=== PATIENT | female | born 1955 | race Caucasian/White ===

== ENCOUNTER → 2021-05-13 09:53 | Outpatient (CLI) | payer MEDICARE, SELFPAY ==
[2021-05-13 12:22] LABS: Color, Urine Yellow (Yellow); Glucose, Dipstick 1000 mg/dl (Normal); Ketone-Dipstick Negative (Negative); Leukocyte Esterase-Dipstick 25 /ul (Negative); Nitrite-Dipstick Negative (Negative); Occult Blood-Urine Negative /ul (Negative); Protein-Dipstick 15 mg/dl (Negative); Urine Bilirubin Dipstick Negative (Negative); Urine Clarity Clear (Clear); Urine Urobilinogen Normal (Normal)
[2021-05-13 12:24] LABS: Absolute Lymphocyte Count 1.48 X10^3/uL (0.83-4.51); Absolute Neutrophil Count 6.4 X10^3/uL (2.0-7.7); Basophil# 0.08 X10^3/uL; Basophil% 0.8 % (0-1); Eosinophil# 0.87 X10^3/uL; Eosinophils% 8.8 % (0-5); Hematocrit 42.2 % (37-47); Hemoglobin 13.6 g/dL (12.0-15.0); Lymphocyte # 1.48 X10^3/ul (0.83-4.51); Lymphocyte % 14.9 % (19-41); Mean Corp Hgb Conc 32.2 g/dL (32-36); Mean Corpuscular Hgb 29.7 pg (27.0-32.0); Mean Corpuscular Volume 92.1 fL (81-99); Mean Platelet Vol. 9.9 fl (6.2-12.0); Monocyte% 10.1 % (0-10); NRBC Flagged by Analyzer 0 % (0-5); Neutrophil # 6.44 X10^3/uL (2.7-7.7); Platelet Count 332 K/mm3 (150-450); RBC Distribution Width SD 47.6 fl (35.1-43.9); Red Blood Count 4.58 M/mm3 (4.2-5.4); White Blood Count 9.9 K/mm3 (4.4-11.0)
[2021-05-13 12:33] LABS: Vitamin D,25 Hydroxy 42.7 ng/mL
[2021-05-13 12:39] LABS: Hemoglobin A1c 6.9 % (3.8-5.6)
[2021-05-13 12:42] LABS: BNP,B-Type NATRIURETIC PEPTIDE 15.6 pg/mL (0-100)
[2021-05-13 12:49] LABS: ALB/GLOB Ratio 0.9 RATIO (0.9-2.4); AST(SGOT) 16 U/L (15-37); Alanine Aminotransfer ALT/SGPT 28 U/L (13-56); Albumin, Serum 3.5 g/dL (3.2-5.0); Alkaline Phosphatase 110 U/L (45-117); Anion Gap 7 (5-15); BUN 29 mg/dL (7-18); BUN/Creat Ratio 19.5 RATIO (10-20); Calcium,Total 10.1 mg/dL (8.5-10.1); Chloride 104 mmol/L (98-107); Cholesterol 116 mg/dL (200); Creatinine, Serum 1.49 mg/dL (0.55-1.02); EST Glomerular Filtration Rate 37 mL/min (>60); Est Glom Filt Rate - Afr Amer 45 mL/min (>60); Free T3 2.4 pg/mL (2.18-3.98); Globulin 3.9 g/dL (2.2-4.2); Glucose 113 mg/dL (74-106); High Density Lipoprotein 46 mg/dL; Magnesium 2.9 mg/dL (1.6-2.6); Potassium 4.2 mmol/L (3.5-5.1); Protein, Total 7.4 g/dL (6.4-8.2); Sodium Level 139 mmol/L (136-145); T4 Free Direct 1.12 ng/dL (0.76-1.46); Thyroid Stim Hormone (TSH) 4.84 uIU/mL (0.358-3.74); Triglycerides 138 mg/dL; Very Low Density Lipoprotein 28 mg/dL (5-40)
== END ==
PROVIDERS: PCP Internal Medicine; Visit Provider Internal Medicine
DX: I11.0 Hypertensive heart disease with heart failure (principal); Z90.10 Acquired absence of unspecified breast and nipple; E89.0 Postprocedural hypothyroidism; N19 Unspecified kidney failure; E11.42 Type 2 diabetes mellitus with diabetic polyneuropathy; E07.9 Disorder of thyroid, unspecified; E21.5 Disorder of parathyroid gland, unspecified; M81.0 Age-related osteoporosis without current pathological fracture; M19.90 Unspecified osteoarthritis, unspecified site; E78.1 Pure hyperglyceridemia; K21.9 Gastro-esophageal reflux disease without esophagitis; Z09 Encounter for follow-up examination after completed treatment for conditions other than malignant neoplasm; Z86.010 Personal history of colon polyps; J44.9 Chronic obstructive pulmonary disease, unspecified
CPT/HCPCS: 36415; 80053; 80061; 81002; 82306; 83036; 83735; 83880; 84439; 84443; 84481; 85025

== ENCOUNTER 2021-06-01 08:39 | Outpatient (CLI) | payer MEDICARE, SELFPAY ==
[2021-06-01 12:50] LABS: Anion Gap 7 (5-15); BUN 27 mg/dL (7-18); Calcium,Total 9.7 mg/dL (8.5-10.1); Chloride 104 mmol/L (98-107); EST Glomerular Filtration Rate 37 mL/min (>60); Est Glom Filt Rate - Afr Amer 45 mL/min (>60); Glucose 199 mg/dL (74-106); Potassium 4.4 mmol/L (3.5-5.1); Sodium Level 139 mmol/L (136-145)
== END 2021-06-01 23:59 | disposition short-term general hospital (02) ==
LOC: BIMLAB 08:40
PROVIDERS: PCP Internal Medicine; Referring Provider Internal Medicine; Visit Provider Internal Medicine
DX: N19 Unspecified kidney failure (principal)
CPT/HCPCS: 36415; 80048

== ENCOUNTER 2021-06-08 08:59 | Outpatient (CLI) | payer MEDICARE, SELFPAY ==
[2021-06-08 12:25] LABS: Anion Gap 9 (5-15); BUN 32 mg/dL (7-18); BUN/Creat Ratio 21.1 RATIO (10-20); Calcium,Total 9.5 mg/dL (8.5-10.1); Chloride 100 mmol/L (98-107); Creatinine, Serum 1.52 mg/dL (0.55-1.02); EST Glomerular Filtration Rate 37 mL/min (>60); Est Glom Filt Rate - Afr Amer 44 mL/min (>60); Glucose 200 mg/dL (74-106); Magnesium 2.8 mg/dL (1.6-2.6); Potassium 4.3 mmol/L (3.5-5.1); Sodium Level 136 mmol/L (136-145)
== END 2021-06-08 23:59 | disposition short-term general hospital (02) ==
LOC: BIMLAB 09:00
PROVIDERS: PCP Internal Medicine; Referring Provider Internal Medicine; Visit Provider Internal Medicine
DX: N39.0 Urinary tract infection, site not specified (principal); I11.0 Hypertensive heart disease with heart failure; I50.9 Heart failure, unspecified; N19 Unspecified kidney failure
CPT/HCPCS: 36415; 80048; 83735

== ENCOUNTER 2021-06-24 12:01 | Outpatient (CLI) | payer MEDICARE, SELFPAY ==
--- NOTE | 2021-06-24 16:06 | ST.MBS ---
Modified Barium Swallow - Patient Information Study Date: 06/24/21 Study Time: 13:00 Direct Billable Minutes: 110 Total Minutes procedure & reportin Diagnosis: Dysphagia, unspecified (R13.10) Referring Physician: Prieto Garcia Reason for Referral: Objectively assess swallow function, risk for aspiration, and to determine recommendations for least restrictive diet texture and compensatory strategies to improve safety of swallow Medical History: The patient is a 66 year old female with PMH below who was referred for MBS study due to concerns for difficulty swallowing foods and drinks. She feels that pills get stuck in her throat. She is currently eating soft solids and unthickened liquids. The patient reports a history of esophageal dilation (4X, most recently 01/2021), MBS study ([place], [place], 1.5 years ago), and history of modified diet (soft solids and thickened liquids). The patient had speech therapy for 2 months after MBS study but did not feel the exercises (Earline and lingual resistance exercises) helped. PMH (Per recent cardiology visit): Arthritis, Asthma, Bleeding disorder, Carpal tunnel syndrome, Cataract, Chronic heart failure with preserved ejection fraction (HFpEF), COPD (chronic obstructive pulmonary disease), Dysphagia, Dysuria, Essential hypertension, GERD (gastroesophageal reflux disease), Glaucoma, Headache, migraine, High triglycerides, History of breast cancer, IBS (irritable bowel syndrome), Kidney failure, Lupus, Neuropathy, Osteoarthritis, Osteoporosis, Parathyroid disorder, Personality disorder, PTSD (post-traumatic stress disorder), Seasonal allergies, Stroke, Thyroid disease, Type 2 diabetes mellitus, Venous hypertension of both lower extremities Surgical history: H/O cervical spine surgery, H/O foot surgery, H/O hand surgery, H/O shoulder surgery, H/O thyroidectomy, History of cholecystectomy, History of hysterectomy, History of left heart catheterization (10/08/09), History of mastectomy Current Diet Ordered: Soft solids / Thin liquids Dentition: WNL Mental Status: WNL Respiratory Status: Oxygenating on Room Air - Penetration-Aspiration Scale Penetration-Aspiration Scale: OBJECTIVE ASSESSMENT OF SWALLOW FUNCTION (QUANTITATIVE ? PER TRIAL): PENETRATION / ASPIRATION SCALE (VARGAS): 1 = does not enter airway 2 = enters airway/above vocal folds/ejected 3 = enters airway/above vocal folds/not ejected 4 = enters airway/contacts vocal folds/ejected 5 = enters airway/contacts vocal folds/not ejected 6 = enters airway/below vocal folds/ejected 7 = enters airway/below vocal folds/not ejected despite effort 8 = enters airway/below vocal folds/no effort - Penetration-Aspiration Scale Score Thin Liquid via teaspoon Result: 3= enters airways/above vocal folds/not ejected Thin Liquid via teaspoon Trial 2 Result: 2= enter airway/above vocal folds/ejected Thin Liquid via large single sip from cup Result: 2= enter airway/above vocal folds/ejected Thin Liquid via sequential sips from cup Result: 3= enters airways/above vocal folds/not ejected Thin Liquid via small single sip from cup Result: 3= enters airways/above vocal folds/not ejected Fulford Thick Liquid via small single sip from cup Result: 1= does not enter airway [place]ford Thick Liquid via small single sip from cup Trial 2 Result: 2= enter airway/above vocal folds/ejected Fulford Thick Liquid via small single sip from cup Trial 3 Result: 2= enter airway/above vocal folds/ejected Honey Thick Liquid via small single sip from cup Result: 2= enter airway/above vocal folds/ejected Pudding with esophageal screen Result: 1= does not enter airway 1/4 Dulce Lomax Comment: Did not score as pt left bolus mostly unchewed. CERTIFIED LEGAL SECRETARY SPECIALIST had pt expectorate bolus. Barium Tablet via teaspoon of Pudding Result: 1= does not enter airway Thin Liquid via single sip from straw Result: 4= enters airway/contacts vocal folds/ejected Thin Liquid via small single sip from cup Trial 3 Result: 3= enters airways/above vocal folds/not ejected Fulford Thick Liquid via small single sip from cup Effortful swallow Result: 2= enter airway/above vocal folds/ejected Fulford Thick Liquid via small single sip from cup Trial 4 Result: 1= does not enter airway Fulford Thick Liquid via small single sip from cup Trial 5 Result: 1= does not enter airway - Oral Phase Labial Seal: No Labial Escape Tongue Control During Bolus Hold: Posterior escape of less than half of bolus Bolus Preparation/Mastication: Minimal chewing/mashing with majority of bolus unchewed Bolus Transport/Lingual Motion: Delayed initiation of tongue motion Oral Residue: Majority of bolus remaining - 1/4 Dulce Doone Cookie Trial left unchewed and expectorated. - Pharyngeal Phase Initiation of Pharyngeal Swallow: Bolus head in pyriforms Soft Palate Elevation: Trace column of contrast/air between soft palate and pharyngeal wall Laryngeal Elevation: Partial superior movement thyroid cart/partial apprx aryt-epig petiole Anterior Hyoid Excursion: Partial anterior movement Epiglottic Movement: Partial inversion Laryngeal Vestibule Closure at Height of Swallow: Incomplete; narrow column of air/contrast in laryngeal vestibule Pharyngeal Stripping Wave: Present - complete Pharyngoesophageal Segment Opening: Parital distension and partial duration; parital obstruction of flow Tongue Base Retraction: Trace column of contrast between tongue base & post. pharyngeal wall Pharyngeal Residue: Trace residue within or on pharyngeal structures - Esophageal Phase Esophageal Clearance: Esophageal retention w/ retrograde flow below pharyngoesophageal seg. - Treatment Strategies Effects of treatment strategies attemped:: Effortful swallow = Little to no impact on decreasing presence of laryngeal penetration. Decreased bolus rate = Effective. Decreased bolus size = Effective. Medication in puree texture = Effective in achieving oral clearance. - Diagnosis/Impression Diagnosis: Mild-moderate oropharyngeal phase dysphagia (R13.12) Impression: The oral phase is marked by severe impairment in mastication. The patient was unable to mash 1/4 Dulce Doone cookie coated in pudding. She has mild deficits in bolus control resulting in loss of bolus to floor of mouth, as well as less than half of bolus to the pyriforms resulting in suboptimal bolus placement upon swallow onset. The pharyngeal phase of the swallow is marked by mild impairments in airway closure due to decreased anterior hyoid excursion and laryngeal elevation. The patient had consistent laryngeal penetration of various consistencies above the vocal folds. This laryngeal penetration did not always fully eject (SEE PAS scores above). With boluses of thicker viscosities (thickened liquids and pudding), the patient had decreased amount/depth of laryngeal penetration. Decreased bolus size and decreased bolus rate also decreased amount of laryngeal penetration. With sips of thin liquids via straw, the patient had penetration to the vocal folds with full ejection due to cough reflex. The patient intermittently coughed throughout the evaluation - both in response to laryngeal penetration and also when no laryngeal penetration was present. No aspiration was observed during the evaluation; however, pt is at increased risk to aspirate thin liquids and large boluses during the swallow. - Recommendations Diet: Mechanical Soft Textures - Minced and moist textures (IDDSI Level 5), Fulford-thick Liquids Compensatory Strategies: Small Bites, Small Sips, No Straws, Slow Rate - Sips and bites one at a time, Sitting upright, Remain sitting upright for 30 minutes after PO intake Recommend Repeat Modified Barium Swallow: Yes - Will recommend repeat MBS study 6-8 weeks after implementation of oropharyngeal strengthening. Need for Skilled Speech Therapy Services: Yes Comment: Will recommend the patient for outpatient dysphagia therapy to address deficits in oropharyngeal swallow function. Would consider the patient for oropharyngeal strengthening to improve lingual control, laryngeal elevation, swallow onset, and hyoid excursion (Effortful swallows, Effortful breath hold and swallow, Amish, lingual coordination). The patient would benefit from thorough education regarding diet recommendations and recommended compensatory strategies. Recommended Referrals: Dental Evaluation - Consider consult to obtain dentures to improve mastication abilities. Education Completed: 1. Described result of evaluation., 7. Pt requires further education on strategies & risks. - Status Active ST Patient: Active - Contact Information [facility] Speech Therapy:: Carline Powers M.A. [facility]-CERTIFIED LEGAL SECRETARY SPECIALIST Speech-Language Pathologist [facility] [address] [place] [address] [email or web address] [phone] 06/24/21 16:30
== END 2021-06-24 23:59 | disposition short-term general hospital (02) ==
LOC: RAD 12:02
PROVIDERS: PCP Internal Medicine; Referring Provider Surgery; Visit Provider Surgery
DX: E11.22 Type 2 diabetes mellitus with diabetic chronic kidney disease (principal); N18.9 Chronic kidney disease, unspecified
CPT/HCPCS: 74230; 92611

== ENCOUNTER 2021-06-25 18:38 | Emergency (ER) | payer MEDICARE, SELFPAY ==
[2021-06-25 18:38] VITALS: BP 114/85; PULSE 89; RESP 14; TEMP 37.1; O2SAT 97; BMI 39.2
[2021-06-25 19:15] VITALS: BP 126/72; PULSE 84; RESP 21; O2SAT 94
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
[2021-06-25 20:01] VITALS: BP 118/67; PULSE 78; RESP 16; O2SAT 97
== END 2021-06-25 20:27 | disposition home or self-care (01) ==
PROVIDERS: Emergency Provider Student in an Organized Health Care Education/Training Program; PCP Internal Medicine; Visit Provider Student in an Organized Health Care Education/Training Program
DX: F41.0 Panic disorder [episodic paroxysmal anxiety] (principal); J44.9 Chronic obstructive pulmonary disease, unspecified; I11.0 Hypertensive heart disease with heart failure; I50.32 Chronic diastolic (congestive) heart failure; K21.9 Gastro-esophageal reflux disease without esophagitis; Z79.82 Long term (current) use of aspirin; Z79.899 Other long term (current) drug therapy
CPT/HCPCS: 99284

== ENCOUNTER 2021-07-09 08:36 | Outpatient (RCR) | payer MEDICARE, SELFPAY ==
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
--- NOTE | 2021-07-27 10:26 | HP.PT.NRP ---
JULIO GILLESPIE was seen in my office for initial evaluation on 07/09/21. The following Plan of Care was established for this patient: Initial Frequency: 2-3x /Week Initial Duration: 4-6 Weeks Patient/Client Instruction: Educate patient on: Condition, Plan of Care, Risk Factors For the Purpose of:: To improve self management Therapeutic Exercise to Include: Strength training, Body mechanics, Postural training, Flexibilty training, Neuromotor development, In an aquatic setting, Dynamic Lumbar Stabilization For the Purpose of:: To decrease pain, To increase ROM, To improve muscle performance and motor function, To increase tolerance to activity/condition/position, To improve ability of physical actions for home/community/work/leisure This patient was last seen in our office 07/09/21. Pertinent comments regarding their Physical therapy will appear below: PATIENT ATTENDED THE PT EVTALISHA THEN I RECEIVED A NOTE (07/27/21) STATING: PATIENT CALLED AND CANCELLED ALL APPTS. SAYS SHE'S BEEN WALKING A LOT EVERYDAY AND FEELS AMAZING AND HAS LOST 7 LBS. WANTED ME TO TELL YOU HER GOOD NEWS! At this point I will be discontinuing this patient from physical therapy. I would be happy to see this patient again in the future if found appropriate by the physician. Thank you! Lily Penny, PT, Cert MDT Balance/Gait/Functional tests - Balance/Special Test Scores Oswestry Low Back Score: 17
== END 2021-07-09 19:00 | disposition home or self-care (01) ==
LOC: PT 08:36
PROVIDERS: PCP Internal Medicine; Referring Provider Anesthesiology Pain Medicine; Visit Provider Anesthesiology Pain Medicine
DX: M54.9 Dorsalgia, unspecified (principal); M79.606 Pain in leg, unspecified
CPT/HCPCS: 97112; 97162

== ENCOUNTER 2021-07-14 08:18 | Outpatient (CLI) | payer MEDICARE, SELFPAY ==
--- NOTE | 2021-07-14 08:21 | US_ITS ---
STUDY: THYROID ULTRASOUND REASON FOR EXAM: Female, 66 years old. Neck fullness, dysphagia TECHNIQUE: Ultrasound evaluation of the thyroid was performed with real-time and static davison-scale imaging. COMPARISON: None. FINDINGS: There has been a previous thyroidectomy. In the right thyroid bed there is a 1.3 x 0.8 x 0.7 cm area of soft tissue density which is consistent with thyroid tissue on ultrasound. A thyroid uptake study could be performed to determine if this represents thyroid tissue. At the site of a palpable abnormality adjacent to the right ear there is a lymph node measuring 1.8 x 1.3 x 0.8 cm. US/Thyroid IMPRESSION: Possible thyroidal tissue noted in the right thyroid bed measuring 1.3 x 0.8 x 0.7 cm. Consider further evaluation with thyroid uptake study Palpable abnormality near the right ear is subcentimeter in short axis dimension lymph node, likely physiologic Electronically Signed: Edgar Marin MD at 17:51 EST ,
== END 2021-07-14 23:59 | disposition home or self-care (01) ==
LOC: US 08:18
PROVIDERS: PCP Internal Medicine; Referring Provider Internal Medicine Endocrinology, Diabetes & Metabolism; Visit Provider Internal Medicine Endocrinology, Diabetes & Metabolism
DX: E04.9 Nontoxic goiter, unspecified (principal)
CPT/HCPCS: 76536

== ENCOUNTER 2021-07-15 12:11 | Outpatient (CLI) | payer MEDICARE, SELFPAY ==
[2021-07-15 15:28] LABS: Albumin, Serum 3.3 g/dL (3.2-5.0); BUN 15 mg/dL (7-18); BUN/Creat Ratio 13.6 RATIO (10-20); Calcium,Total 8.9 mg/dL (8.5-10.1); Chloride 104 mmol/L (98-107); EST Glomerular Filtration Rate 53 mL/min (>60); Est Glom Filt Rate - Afr Amer 64 mL/min (>60); Glucose 150 mg/dL (74-106); Phosphorus 2.8 mg/dL (2.5-4.9); Potassium 4.1 mmol/L (3.5-5.1); Sodium Level 138 mmol/L (136-145)
[2021-07-15 15:34] LABS: PTHIN 62.3 pg/mL (18.4-80.1)
[2021-07-15 15:40] LABS: T4 Free Direct 1.09 ng/dL (0.76-1.46); Thyroid Stim Hormone (TSH) 3.31 uIU/mL (0.358-3.74)
[2021-07-15 17:13] LABS: Vitamin D,25 Hydroxy 47.5 ng/mL
[2021-07-15 17:19] LABS: Microalbumin,Random Urine 16.6 mg/L (NO RANGE EST.); Microalbumin:Creatinine Ratio 10.9 mg/g CRE (<30 mg/g CRE)
== END 2021-07-15 23:59 | disposition home or self-care (01) ==
LOC: BIMLAB 12:12
PROVIDERS: Internal Medicine Endocrinology, Diabetes & Metabolism; PCP Internal Medicine; Referring Provider Internal Medicine Nephrology; Visit Provider Internal Medicine Nephrology
DX: E11.22 Type 2 diabetes mellitus with diabetic chronic kidney disease (principal); E21.5 Disorder of parathyroid gland, unspecified; N18.32 Chronic kidney disease, stage 3b; E55.9 Vitamin D deficiency, unspecified
CPT/HCPCS: 36415; 80069; 82043; 82306; 82570; 83970; 84439; 84443

== ENCOUNTER 2021-08-19 13:19 | Outpatient (CLI) | payer MEDICARE, SELFPAY ==
[2021-08-19 15:10] LABS: Absolute Neutrophil Count 6.5 X10^3/uL (2.0-7.7); Basophil# 0.05 X10^3/uL; Basophil% 0.5 % (0-1); Eosinophil# 0.59 X10^3/uL; Eosinophils% 6.2 % (0-5); Lymphocyte % 15.7 % (19-41); Mean Corp Hgb Conc 31.7 g/dL (32-36); Mean Corpuscular Hgb 29.5 pg (27.0-32.0); Monocyte# 0.84 X10^3/uL; Monocyte% 8.8 % (0-10); NRBC Flagged by Analyzer 0 % (0-5); Neutrophil # 6.54 X10^3/uL (2.7-7.7); Neutrophil % 68.5 % (47-70); Platelet Count 296 K/mm3 (150-450); RBC Distribution Width CV 13.3 % (11.6-14.6); RBC Distribution Width SD 45.6 fl (35.1-43.9); Red Blood Count 4.41 M/mm3 (4.2-5.4); White Blood Count 9.6 K/mm3 (4.4-11.0)
[2021-08-19 15:22] LABS: Vitamin D,25 Hydroxy 51.5 ng/mL
[2021-08-19 15:34] LABS: BNP,B-Type NATRIURETIC PEPTIDE 19.2 pg/mL (0-100)
[2021-08-19 15:36] LABS: ALB/GLOB Ratio 0.9 RATIO (0.9-2.4); AST(SGOT) 15 U/L (15-37); Alanine Aminotransfer ALT/SGPT 27 U/L (13-56); Albumin, Serum 3.4 g/dL (3.2-5.0); Alkaline Phosphatase 121 U/L (45-117); Anion Gap 7 (5-15); BUN 15 mg/dL (7-18); BUN/Creat Ratio 14.7 RATIO (10-20); Calcium,Total 8.7 mg/dL (8.5-10.1); Chloride 104 mmol/L (98-107); Cholesterol 104 mg/dL (200); Creatinine, Serum 1.02 mg/dL (0.55-1.02); EST Glomerular Filtration Rate 58 mL/min (>60); Est Glom Filt Rate - Afr Amer 70 mL/min (>60); Globulin 3.6 g/dL (2.2-4.2); Glucose 165 mg/dL (74-106); High Density Lipoprotein 43 mg/dL; Potassium 3.9 mmol/L (3.5-5.1); Sodium Level 139 mmol/L (136-145); T4 Free Direct 1.14 ng/dL (0.76-1.46); Thyroid Stim Hormone (TSH) 5.06 uIU/mL (0.358-3.74); Triglycerides 141 mg/dL; Very Low Density Lipoprotein 28 mg/dL (5-40)
[2021-08-19 15:39] LABS: Hemoglobin A1c 7.3 % (3.8-5.6)
== END 2021-08-19 23:59 | disposition home or self-care (01) ==
LOC: BIMLAB 13:20
PROVIDERS: PCP Internal Medicine; Referring Provider Internal Medicine; Visit Provider Internal Medicine
DX: I50.32 Chronic diastolic (congestive) heart failure (principal); J44.9 Chronic obstructive pulmonary disease, unspecified; I11.0 Hypertensive heart disease with heart failure; E11.65 Type 2 diabetes mellitus with hyperglycemia; E66.01 Morbid (severe) obesity due to excess calories; Z68.37 Body mass index [BMI] 37.0-37.9, adult; E04.9 Nontoxic goiter, unspecified; E03.9 Hypothyroidism, unspecified; E78.1 Pure hyperglyceridemia; E07.9 Disorder of thyroid, unspecified; K21.9 Gastro-esophageal reflux disease without esophagitis; M81.0 Age-related osteoporosis without current pathological fracture
CPT/HCPCS: 36415; 80053; 80061; 82306; 83036; 83880; 84439; 84443; 85025

== ENCOUNTER 2021-09-04 07:37 | Outpatient (CLI) | payer MEDICARE, SELFPAY ==
--- NOTE | 2021-09-04 07:39 | CT_ITS ---
STUDY: CT SOFT TISSUE NECK WITH CONTRAST REASON FOR EXAM: Female, 66 years old. RT NECK MASS. Lymphadenopathy in the posterior right cervical region. Difficulty swallowing. Patient has history of a left mastectomy and chemotherapy. RADIATION DOSAGE (If Supplied By Facility): CTDIvol = ( 19.55 ) mGy, DLP = ( 649.77 ) mGycm TECHNIQUE: The patient was scanned in a multi-detector CT scanner. High resolution transaxial imaging was performed following intravenous administration of IV 75mL Isovue-370. Sagittal and coronal images were reconstructed. Individualized dose optimization techniques were used for this CT. COMPARISON: None. FINDINGS: Normal bilateral parotid glands. Normal bilateral freelance director spaces. Normal bilateral parapharyngeal spaces. Normal bilateral carotid spaces. Normal bilateral sublingual and submandibular glands and spaces. Normal visualized nasopharynx. Normal retropharyngeal space. Normal perivertebral space. Normal visualized bilateral faucial tonsils. The visualized tongue, tongue base and oropharynx are normal. There are minimally enlarged lymph nodes of the neck, with preservation of normal wil architecture, consistent with a reactive lymph hyperplasia. There is no demonstrated solid or cystic mass lesion. There is no abnormal contrast enhancement. Normal epiglottis, bilateral vallecula and hypopharynx. The pre-epiglottic and paraglottic adipose spaces are normal. Normal visualized bilateral piriform sinuses, aryepiglottic folds, vocal cords, and arytenoid-cricoid articulations. Normal subglottic trachea. The thyroid gland is not visualized most likely secondary to prior resection. Normal visualized pulmonary apices. Normal visualized paranasal sinuses. There is multilevel degenerative changes of the cervical spine. Distention of the esophagus. Atherosclerotic plaque formation of the aortic arch. CT/Soft Tissue Neck WITH Contrast IMPRESSION: No mass lesion is seen. The patient is status post thyroid resection. Electronically Signed: Derek Cornejo MD at 14:09 EDT ,
== END 2021-09-04 23:59 | disposition home or self-care (01) ==
PROVIDERS: PCP Internal Medicine; Visit Provider Otolaryngology
DX: R22.1 Localized swelling, mass and lump, neck (principal)
CPT/HCPCS: 70491

== ENCOUNTER → 2021-09-30 | Outpatient (CLI) | payer MEDICARE, SELFPAY ==
--- NOTE | 2021-09-30 08:43 | ECHOCS_ITS ---
Reason For Study: PHTN Procedure This was a 2D Doppler, Color Flow transthoracic echocardiogram. The study was technically difficult. Contrast injection was performed. Exam performed in department. Left Ventricle Normal LV size. Left ventricular systolic function is normal. The estimated ejection fraction is 65 %. Stage 1 diastolic dysfunction. No regional wall motion abnormalities noted. Right Ventricle Normal RV size. Normal systolic function. Atria Normal left atrium. Normal right atrium. Mitral Valve Normal mitral valve. Tricuspid Valve Normal tricuspid valve. Mild tricuspid valve insufficiency. Pulmonary artery systolic pressure is 26 mmHg. Aortic Valve The aortic valve is not well visualized. Pulmonic Valve The pulmonic valve is not well visualized. Great Vessels Normal aortic root. The pulmonary artery is normal size. Normal inferior vena cava. Pericardium/Pleural No pericardial effusion. Medication 22 gauge I.V. with prn adaptor inserted into right arm. Diluted definity 3.5ml given slow IV push to enhance endocardial definition. MMode/2D Measurements & Calculations LVIDd: 4.4 cm IVSd: 1.0 cm LA dimension: 3.0 cm LVIDs: 3.1 cm LVPWd: 1.1 cm FS: 29.7 % LAV(MOD-sp4): 49.9 ml LA A4 area: 18.4 cm2 RA A4 area: 11.3 cm2 Time Measurements MV dec time: 0.28 sec Doppler Measurements & Calculations MV E max cm: 59.0 cm/sec Lat Peak E' Cm: 7.6 cm/sec Med Peak E' Cm: 9.2 cm/sec MV A max cm: 85.9 cm/sec E/E' lat: 7.7 E/E' med: 6.4 MV E/A: 0.69 MV V2 max: 93.8 cm/sec MV P1/2t max cm: 70.5 cm/sec Ao V2 max: 127.1 cm/sec MV max P.5 mmHg MV P1/2t: 75.3 msec Ao max P.5 mmHg MV V2 mean: 51.0 cm/sec MV dec slope: 274.5 cm/sec2 MV mean P.2 mmHg MV V2 VTI: 18.0 cm MVA(P1/2t): 2.9 cm2 LV V1 max: 116.7 cm/sec PA V2 max: 118.5 cm/sec TR max cm: 234.4 cm/sec LV V1 max P.4 mmHg TR max P.0 mmHg ECHO/Echo Complete W/ Contrast Interpretation Summary Normal LV size. Left ventricular systolic function is normal. The estimated ejection fraction is 65 %. Stage 1 diastolic dysfunction. Pulmonary artery systolic pressure is 26 mmHg. Contrast injection was performed. Ordering Physician: Colin Rosenberg Referring Physician: Heather Ziegler M.D. Performed By: Vipul Jaime RCS
== END | disposition home or self-care (01) ==
LOC: CVS 08:42
PROVIDERS: PCP Internal Medicine; Referring Provider Internal Medicine Critical Care Medicine; Visit Provider Internal Medicine Critical Care Medicine
DX: I50.32 Chronic diastolic (congestive) heart failure (principal); J44.9 Chronic obstructive pulmonary disease, unspecified
CPT/HCPCS: 93306; Q9957; A4216; C8929

== ENCOUNTER → 2021-11-11 | Outpatient (CLI) | payer MEDICARE, SELFPAY ==
[2021-11-11 08:35] LABS: BNP,B-Type NATRIURETIC PEPTIDE 48.8 pg/mL (0-100)
[2021-11-11 09:26] LABS: Anion Gap 7 (5-15); BUN 12 mg/dL (7-18); BUN/Creat Ratio 12.7 RATIO (10-20); Calcium,Total 8.7 mg/dL (8.5-10.1); Chloride 106 mmol/L (98-107); Creatinine, Serum 0.95 mg/dL (0.55-1.02); EST Glomerular Filtration Rate 63 mL/min (>60); Est Glom Filt Rate - Afr Amer 76 mL/min (>60); Glucose 118 mg/dL (74-106); Potassium 3.8 mmol/L (3.5-5.1); Sodium Level 140 mmol/L (136-145)
== END | disposition home or self-care (01) ==
LOC: LAB 07:35
PROVIDERS: PCP Internal Medicine; Referring Provider Nurse Practitioner Gerontology; Visit Provider Nurse Practitioner Gerontology
DX: R06.00 Dyspnea, unspecified (principal)
CPT/HCPCS: 36415; 80048; 83880

== ENCOUNTER → 2021-11-18 | Outpatient (CLI) | payer MEDICARE, SELFPAY ==
[2021-11-18 11:52] VITALS: PULSE 100; PULSE 106; PULSE 113; PULSE 116; PULSE 120; PULSE 125; PULSE 95; PULSE 98; O2SAT 93; O2SAT 94; O2SAT 95; O2SAT 96
--- NOTE | 2021-11-18 13:08 | WT_ITS ---
PSN 6 Minute Walk Test 6 Minute Walk Test 6 Minute Walk Test: 6 Minute Walk Test PSN:6-Minute Walk Test Start: 11/18/21 11:51 Freq: Status: Active Protocol: RESP.6MINW Document 11/18/21 11:52 [facility] (Rec: 11/18/21 11:56 [facility] [id number]) 6 Minute Walk Test Date Performed 11/18/21 Time Performed 11:30 Height 5 ft 9 in Weight: 114.305 kg Weight in Pounds 252.[address]: Colin Rosenberg Assistive device used: None Pre-test Oxygen Delivery Method Room Air Pulse Ox (%) 95 Pulse Rate (60-100 beats/min) 95 Dyspnea Elias Scale (0-10) 1 1st minute Oxygen Delivery Method Room Air Pulse Ox (%) 93 Pulse Rate (60-100 beats/min) 100 Dyspnea Elias Scale (0-10) 2 Number of Rests Taken 0 2nd minute Oxygen Delivery Method Room Air Pulse Ox (%) 93 Pulse Rate (60-100 beats/min) 106 H Dyspnea Elias Scale (0-10) 3 Number of Rests Taken 1 Reported Symptoms Increased Work of Breathing 3rd minute Oxygen Delivery Method Room Air Pulse Ox (%) 96 Pulse Rate (60-100 beats/min) 113 H Dyspnea Elias Scale (0-10) 4 Number of Rests Taken 1 Reported Symptoms Increased Work of Breathing 4th minute Oxygen Delivery Method Room Air Pulse Ox (%) 94 Pulse Rate (60-100 beats/min) 116 H Dyspnea Elias Scale (0-10) 4 Number of Rests Taken 0 Reported Symptoms Increased Work of Breathing 5th minute Oxygen Delivery Method Room Air Pulse Ox (%) 93 Pulse Rate (60-100 beats/min) 120 H Dyspnea Elias Scale (0-10) 4 Number of Rests Taken 1 Reported Symptoms Increased Work of Breathing 6th minute Oxygen Delivery Method Room Air Pulse Ox (%) 95 Pulse Rate (60-100 beats/min) 125 H Dyspnea Elias Scale (0-10) 4 Number of Rests Taken 0 Reported Symptoms Increased Work of Breathing Post-test Oxygen Delivery Method Room Air Pulse Ox (%) 96 Pulse Rate (60-100 beats/min) 98 Dyspnea Elias Scale (0-10) 1 Full Laps Walked 12 Partial Lap, Number of Tiles Walked 38 Total Distance Walked (ft) 746 Interpretation Interpretation: The patient was able to ambulate 746 feet over the course of 6 minutes on room air with no assistive device, but 3 breaks. The patient experienced no significant desaturation, but did have a peak heart rate of 125 bpm. These findings are consistent with a cardiovascular limitation exercise tolerance. Recommendations Recommendations: No supplemental oxygen is indicated at this time. Patient may benefit from a cardiovascular evaluation for shortness of breath on exertion.
== END | disposition home or self-care (01) ==
LOC: PSN 11:33
PROVIDERS: PCP Internal Medicine; Referring Provider Internal Medicine Critical Care Medicine; Visit Provider Internal Medicine Critical Care Medicine
DX: J44.9 Chronic obstructive pulmonary disease, unspecified (principal)
CPT/HCPCS: 94618

== ENCOUNTER → 2021-11-20 | Outpatient (CLI) | payer MEDICARE, SELFPAY ==
--- NOTE | 2021-11-21 05:30 | PFTCOMP_ITS ---
COMPLETE PULMONARY FUNCTION TEST INTERPRETATION Brief HPI: Patient is a 66-year-old female, currently under the care of myself, who presents to [facility] for complete pulmonary function tests secondary to diagnosis of COPD. Respiratory therapist reports good effort and reproducible results. Interpretation: Forced expiration spirometry shows no large airways obstructive ventilatory defect with an FEV1 of 77% predicted. There is no significant bronchodilator response by strict ATS criteria. Spirograms are of good quality and plateau normally. The respiratory flow volume loop shows a normal pattern. Lung volumes by body plethysmography show a mildly reduced total lung capacity at 4.92 L, 84% predicted. All other lung volumes are reduced symmetrically. Diffusion capacity by carbon monoxide is at the lower limit of normal at 70% predicted. The airway resistance is normal. No previous pulmonary function tests were available for review. Impression: Mild restrictive ventilatory defect with a symmetric reduction diffusion capacity
== END | disposition home or self-care (01) ==
LOC: PSN 12:25
PROVIDERS: PCP Internal Medicine; Referring Provider Internal Medicine Critical Care Medicine; Visit Provider Internal Medicine Critical Care Medicine
DX: J44.9 Chronic obstructive pulmonary disease, unspecified (principal)
CPT/HCPCS: 94060; 94726; 94729

== ENCOUNTER → 2021-12-17 | Day surgery (SDC) | payer MEDICARE, SELFPAY ==
[2021-12-17] MEDS: Lidocaine Jelly 2% 20 ML Syringe (URO-JET) 1 APPLIC (08:05)
[2021-12-17 08:26] VITALS: BP 145/65; PULSE 78; RESP 16; TEMP 36.3; O2SAT 97
== END | disposition home or self-care (01) ==
PROVIDERS: PCP Internal Medicine; Referring Provider Internal Medicine Gastroenterology; Visit Provider Internal Medicine Gastroenterology
PROC: F00ZJWZ Instrumental Swallowing and Oral Function Assessment using Swallowing Equipment (ICD-10-PCS; CPT 43235; principal; 2021-12-17 07:55)
DX: Z53.8 Procedure and treatment not carried out for other reasons (principal)
CPT/HCPCS: 91010

== ENCOUNTER 2021-12-23 12:15 | Outpatient (CLI) | payer MEDICARE, SELFPAY ==
--- NOTE | 2021-12-23 12:16 | EKG12_ITS ---
Test Reason : CP Blood Pressure : / mmHG Vent. Rate : 094 BPM Atrial Rate : 094 BPM P-R Int : 144 ms QRS Dur : 082 ms QT Int : 376 ms P-R-T Axes : 006 -34 045 degrees QTc Int : 470 ms Normal sinus rhythm Left axis deviation Abnormal ECG Confirmed by ML RIDLEY, KENNY ([id number]), graphic editor KENNEY ENRIQUE ([id number]) on 12/28/2021 11:02:12 AM Referred By: Heather Ziegler Confirmed By:ARASH BULL MD
== END 2021-12-23 23:59 | disposition home or self-care (01) ==
LOC: PSN 12:15
PROVIDERS: PCP Internal Medicine; Referring Provider Internal Medicine; Visit Provider Internal Medicine
DX: R07.89 Other chest pain (principal); M79.601 Pain in right arm; M79.602 Pain in left arm
CPT/HCPCS: 93005

== ENCOUNTER → 2021-12-26 | Outpatient (CLI) | payer MEDICARE, SELFPAY ==
[2021-12-26 08:37] LABS: T4 Free Direct 1.45 ng/dL (0.76-1.46); Thyroid Stim Hormone (TSH) 0.03 uIU/mL (0.358-3.74)
== END | disposition home or self-care (01) ==
LOC: LAB 07:34
PROVIDERS: PCP Internal Medicine; Referring Provider Internal Medicine Endocrinology, Diabetes & Metabolism; Visit Provider Internal Medicine Endocrinology, Diabetes & Metabolism
DX: E78.1 Pure hyperglyceridemia (principal); E11.9 Type 2 diabetes mellitus without complications; E03.9 Hypothyroidism, unspecified; I10 Essential (primary) hypertension
CPT/HCPCS: 36415; 84439; 84443

== ENCOUNTER 2021-12-30 08:20 | Day surgery (SDC) | payer MEDICARE, SELFPAY ==
[2021-12-30 08:46] VITALS: BP 123/56; PULSE 82; RESP 18; TEMP 36.2; O2SAT 95; BMI 37.0
--- NOTE | 2021-12-30 10:15 | EGD_PTH ---
PATIENT: JULIO GILLESPIE LOC: [facility] U#:[id number] AGE/SX: 66/F ROOM: RE12/30/[address]: Dr. Tristen Cabrera DO : 1955 BED: DIS: 12/30/2021 SPEC #: [id number] RECD: 12/30/21 13:55 STATUS: ISSAC LUDIVINA #: [id number] CLARA: 12/30/21 10:[address]: Tristen Cabrera DEPT: SURGICAL PATHOLOGY RECD BY: Sammi Castro ENTERED: 12/31/21 09:35 SP TYPE: EGD BIOPSY LUCIE DR: Dr. Heather Ziegler MD Tissues: A - Esophagus, NOS B - Esophagus, NOS Procedures: Special Stain Group II Surgery Specimen Level IV Alcian Blue/PAS (control) HEADER OPERATION: EGD with biopsies and (MAC) dilation PRE-OP DIAGNOSIS: Choking, GERD TISSUE SUBMITTED: A ? Distal esophagus biopsy, B ? Random esophagus biopsy MICROSCOPIC DIAGNOSIS A. Distal esophagus, biopsy: Fragments of gastroesophageal mucosa with chronic inflammation. Intestinal metaplasia (goblet cell metaplasia) not identified. See comment. B. Esophagus, random biopsy: Fragments of benign squamous epithelium. BRENDEN:donn 01/01/2022 COMMENT A. Alcian blue/PAS stain with matched control is used in the evaluation of the specimen. MICROSCOPIC DESCRIPTION Slides are reviewed. GROSS DESCRIPTION A - Received in fixative is one container labeled with the patient's name and designated distal esophagus biopsy. The specimen consists of two irregular fragments of light laura soft tissue that in aggregate measure 0.8 x 0.3 x 0.1 cm. The specimen is totally submitted in one cassette. B - Received in fixative is one container labeled with the patient's name and designated random esophagus biopsy. The specimen consists of two irregular fragments of light laura soft tissue that in aggregate measure 1 x 0.2 x 0.1 cm. The specimen is totally submitted in one cassette. / BRENDEN:donn 12/31/2021 TC:3 CPT: 70336 x2, 05910
[2021-12-30 10:20] LABS: Bedside Glucose 195 mg/dL (74-106)
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
[2021-12-30 11:10] VITALS: BP 113/73; BP 123/56; PULSE 83; RESP 16; TEMP 36.8; O2SAT 94
[2021-12-30 11:15] VITALS: BP 110/58; BP 123/56; PULSE 80; RESP 16; O2SAT 92
[2021-12-30 11:20] VITALS: BP 104/88; BP 123/56; PULSE 78; RESP 16; O2SAT 93
--- NOTE | 2021-12-30 11:22 | OP.EGD_ITS ---
Patient Name: Marely Pena Procedure Date: 12/30/2021 10:50 AM Date of : 1955 Age: 66 Procedure: Upper GI endoscopy Indications: Dysphagia Providers: Tristen Cabrera DO Medicines: Monitored Anesthesia Care Patient Profile: This is a 66 year old female. Refer to note in patient chart for documentation of history and physical. Patient has symptoms. She is status post EGD for dilation within the past six months. Complications: No immediate complications. Procedure: Pre-Anesthesia Assessment: - Prior to the procedure, a History and Physical was performed, and patient medications and allergies were reviewed. The patient is competent. The risks and benefits of the procedure and the sedation options and risks were discussed with the patient. All questions were answered and informed consent was obtained. Patient identification and proposed procedure were verified by the physician in the pre-procedure area. Mental Status Examination: alert and oriented. Airway Examination: normal oropharyngeal airway and neck mobility. Respiratory Examination: clear to auscultation. CV Examination: normal. Prophylactic Antibiotics: The patient does not require prophylactic antibiotics. Prior Anticoagulants: The patient has taken no previous anticoagulant or antiplatelet agents. ASA Grade Assessment: II - A patient with mild systemic disease. After reviewing the risks and benefits, the patient was deemed in satisfactory condition to undergo the procedure. The anesthesia plan was to use moderate sedation / analgesia (conscious sedation). Immediately prior to administration of medications, the patient was re-assessed for adequacy to receive sedatives. The heart rate, respiratory rate, oxygen saturations, blood pressure, adequacy of pulmonary ventilation, and response to care were monitored throughout the procedure. The physical status of the patient was re-assessed after the procedure. After obtaining informed consent, the endoscope was passed under direct vision. Throughout the procedure, the patient's blood pressure, pulse, and oxygen saturations were monitored continuously. The gastroscope was introduced through the mouth, and advanced to the second part of duodenum. The upper GI endoscopy was accomplished without difficulty. The patient tolerated the procedure well. Scope In: 10:55:59 AM Scope Out: 11:04:37 AM Total Procedure Duration Time 0 hours 8 minutes 38 seconds Findings: A 5 mm bleeding Felisha-Boggs tear with stigmata of recent bleeding was found. Coagulation for hemostasis using monopolar probe was successful. Estimated blood loss was minimal. One benign-appearing, intrinsic stenosis was found 20 to 21 cm from the incisors. This stenosis was mildly severe and. The stenosis was traversed. A guidewire was placed and the scope was withdrawn. Dilation was performed with a Savary dilator with no resistance at 60 Fr. The dilation site was examined and showed moderate improvement in luminal narrowing. Estimated blood loss was minimal. Mucosal changes including congestion (edema) and longitudinal markings were found in the upper third of the esophagus. This was biopsied with a cold forceps for histology. Biopsies were taken with a cold forceps for histology. Verification of patient identification for the specimen was done. Estimated blood loss was minimal. A few localized, 5 mm non-bleeding erosions were found in the gastric antrum. There were no stigmata of recent bleeding. The duodenal bulb was normal. Biopsies were taken with a cold forceps for histology. Verification of patient identification for the specimen was done. Estimated blood loss was minimal. Impression: - Felisha-Boggs tear. Treated with a monopolar probe. - Benign-appearing esophageal stenosis. Dilated. - Esophageal mucosal changes consistent with eosinophilic esophagitis. Biopsied. - Non-bleeding erosive gastropathy. - Normal duodenal bulb. Biopsied. Recommendation: - Discharge patient to home. - Resume previous diet. - Continue present medications. - Await pathology results. The MRI of the cervical spine and the brain Manometry testing and possibly EMG Biochemical work-up for an autoimmune disease affecting the upper GI tract including Behcet's Sjogren's syndrome and crest syndrome Procedure Code(s): --- Professional --- 76453, 59, Esophagogastroduodenoscopy, flexible, transoral; with control of bleeding, any method 33007, 51, Esophagogastroduodenoscopy, flexible, transoral; with insertion of guide wire followed by passage of dilator(s) through esophagus over guide wire 41473, 59, Esophagogastroduodenoscopy, flexible, transoral; with biopsy, single or multiple CPT copyright 2017 [employer]. All rights reserved. The codes documented in this report are preliminary and upon jumpbasting lining baster review may be revised to meet current compliance requirements. Tristen Cabrera DO 12/30/2021 11:21:38 AM This report has been signed electronically. Number of Addenda: 1 Note Initiated On: 12/30/2021 10:50 AM Addendum Number: 1 Addendum Date: 03/04/2022 6:33:16 AM MAC was used as sedation for this procedure. Tristen Cabrera DO 03/04/2022 6:33:20 AM This report has been signed electronically.
--- NOTE | 2021-12-30 11:23 | OP.CCLET_ITS ---
03/04/2022 Heather Ziegler [facility] [address] [place] [address] Re : Upper GI endoscopy procedure for Marely Pena Dear Dr. Ziegler This procedure was performed on Thursday, December 30, 2021. My impressions and recommendations are as follows: Impressions : - Felisha-Boggs tear. Treated with a monopolar probe. - Benign-appearing esophageal stenosis. Dilated. - Esophageal mucosal changes consistent with eosinophilic esophagitis. Biopsied. - Non-bleeding erosive gastropathy. - Normal duodenal bulb. Biopsied. Recommendations : - Discharge patient to home. - Resume previous diet. - Continue present medications. - Await pathology results. The MRI of the cervical spine and the brain Manometry testing and possibly EMG Biochemical work-up for an autoimmune disease affecting the upper GI tract including Behcet's Sjogren's syndrome and crest syndrome My findings are described in the full procedure note, which is enclosed. If I can be of further assistance, please feel free to contact me at . Sincerely, Tristen Cabrera, 12/30/2021 11:21:38 AM This report has been signed electronically.
[2021-12-30 11:25] VITALS: BP 101/67; BP 123/56; PULSE 77; RESP 16; TEMP 36.9; O2SAT 97
[2021-12-30 11:42] VITALS: BP 123/56
== END 2021-12-30 11:53 | disposition home or self-care (01) ==
LOC: EN 08:21 → AC 08:23
PROVIDERS: PCP Internal Medicine; Referring Provider Internal Medicine; Visit Provider Internal Medicine Gastroenterology
PROC: 0DJ08ZZ Inspection of Upper Intestinal Tract, Via Natural or Artificial Opening Endoscopic (ICD-10-PCS; CPT 43235; principal; 2021-12-30 10:10)
DX: K22.6 Gastro-esophageal laceration-hemorrhage syndrome (principal); F25.9 Schizoaffective disorder, unspecified; M35.00 Sjogren syndrome, unspecified; J44.9 Chronic obstructive pulmonary disease, unspecified; E11.40 Type 2 diabetes mellitus with diabetic neuropathy, unspecified; K90.0 Celiac disease; K21.9 Gastro-esophageal reflux disease without esophagitis; F41.9 Anxiety disorder, unspecified; G89.29 Other chronic pain; I10 Essential (primary) hypertension; H40.9 Unspecified glaucoma; E78.1 Pure hyperglyceridemia; Z85.3 Personal history of malignant neoplasm of breast; I95.9 Hypotension, unspecified; E03.9 Hypothyroidism, unspecified; K58.9 Irritable bowel syndrome, unspecified; E66.9 Obesity, unspecified; M81.0 Age-related osteoporosis without current pathological fracture; Z87.440 Personal history of urinary (tract) infections; H26.9 Unspecified cataract; F32.A Depression, unspecified; G25.81 Restless legs syndrome; Z90.49 Acquired absence of other specified parts of digestive tract; Z68.37 Body mass index [BMI] 37.0-37.9, adult; Z79.82 Long term (current) use of aspirin; Z79.899 Other long term (current) drug therapy; Z79.84 Long term (current) use of oral hypoglycemic drugs; K22.2 Esophageal obstruction; K31.89 Other diseases of stomach and duodenum
CPT/HCPCS: 43248; 43239; 43255; 82962; 88305; 88313; J7120; J2405

== ENCOUNTER → 2022-01-06 | Outpatient (CLI) | payer MEDICARE, SELFPAY ==
[2022-01-06 10:41] LABS: Erythrocyte Sedimentation Rate 26 mm/hr (0-30)
[2022-01-06 10:43] LABS: Absolute Lymphocyte Count 1.65 X10^3/uL (0.83-4.51); Absolute Neutrophil Count 7.3 X10^3/uL (2.0-7.7); Basophil# 0.05 X10^3/uL; Basophil% 0.5 % (0-1); Eosinophil# 0.81 X10^3/uL; Eosinophils% 7.7 % (0-5); Hematocrit 38.1 % (37-47); Hemoglobin 12.8 g/dL (12.0-15.0); Lymphocyte # 1.65 X10^3/ul (0.83-4.51); Lymphocyte % 15.6 % (19-41); Mean Corp Hgb Conc 33.6 g/dL (32-36); Mean Corpuscular Hgb 30.3 pg (27.0-32.0); Mean Corpuscular Volume 90.1 fL (81-99); Mean Platelet Vol. 9.5 fl (6.2-12.0); Monocyte# 0.78 X10^3/uL; Monocyte% 7.4 % (0-10); NRBC Flagged by Analyzer 0 % (0-5); Neutrophil # 7.25 X10^3/uL (2.7-7.7); Neutrophil % 68.4 % (47-70); Platelet Count 310 K/mm3 (150-450); RBC Distribution Width CV 12.9 % (11.6-14.6); RBC Distribution Width SD 42.2 fl (35.1-43.9); Red Blood Count 4.23 M/mm3 (4.2-5.4); White Blood Count 10.6 K/mm3 (4.4-11.0)
[2022-01-06 11:21] LABS: ALB/GLOB Ratio 0.9 RATIO (0.9-2.4); AST(SGOT) 15 U/L (15-37); Alanine Aminotransfer ALT/SGPT 17 U/L (13-56); Albumin, Serum 3.2 g/dL (3.2-5.0); Alkaline Phosphatase 102 U/L (45-117); Anion Gap 7 (5-15); BUN 19 mg/dL (7-18); BUN/Creat Ratio 18.1 RATIO (10-20); CRP < 2.90 mg/L (0.0-3.0); Calcium,Total 8.9 mg/dL (8.5-10.1); Chloride 105 mmol/L (98-107); Creatinine, Serum 1.05 mg/dL (0.55-1.02); EST Glomerular Filtration Rate 56 mL/min (>60); Est Glom Filt Rate - Afr Amer 68 mL/min (>60); Globulin 3.5 g/dL (2.2-4.2); Glucose 123 mg/dL (74-106); Protein, Total 6.7 g/dL (6.4-8.2); Rheumatoid Factor < 10.0 IU/mL (<15); Sodium Level 140 mmol/L (136-145)
[2022-01-06 11:59] LABS: Hepatitis B Surface Antibody Non-Reactive; Hepatitis B Surface Antigen Non-Reactive (Nonreactive); Hepatitis C Antibody Non-Reactive (Nonreactive)
[2022-01-08 14:09] LABS: SJOGREN'S Anti-SS-A test < 0.2 AI (0.0-0.9); SJOGREN'S Anti-SS-B test < 0.2 AI (0.0-0.9)
[2022-01-08 17:19] LABS: ANTINUCLEAR ANTIBODIES DIRECT Positive (Negative)
[2022-01-11 18:03] LABS: CCP IgG Antibodies 7 units (0-19)
== END | disposition home or self-care (01) ==
LOC: LAB 10:09
PROVIDERS: PCP Internal Medicine; Visit Provider Internal Medicine Nephrology
DX: M06.4 Inflammatory polyarthropathy (principal); F25.9 Schizoaffective disorder, unspecified; M35.00 Sjogren syndrome, unspecified; J44.9 Chronic obstructive pulmonary disease, unspecified; I50.9 Heart failure, unspecified; E11.22 Type 2 diabetes mellitus with diabetic chronic kidney disease; M79.7 Fibromyalgia; K58.9 Irritable bowel syndrome, unspecified; K90.0 Celiac disease; N18.9 Chronic kidney disease, unspecified; E89.0 Postprocedural hypothyroidism; H40.9 Unspecified glaucoma; E78.5 Hyperlipidemia, unspecified; G25.81 Restless legs syndrome; G47.33 Obstructive sleep apnea (adult) (pediatric)
CPT/HCPCS: 36415; 80053; 85025; 85652; 86038; 86140; 86200; 86235; 86431; 86706; 86803; 87340

== ENCOUNTER → 2022-01-11 | Outpatient (CLI) | payer MEDICARE, SELFPAY ==
--- NOTE | 2022-01-11 10:39 | MRI_ITS ---
STUDY: MRI CERVICAL SPINE WITHOUT CONTRAST REASON FOR EXAM: Female, 66 years old. Cerv radiculopathy, bilateral shoulder pain, history of breast cancer, thyroidectomy TECHNIQUE: Standardized fat and water weighted pulse sequences were obtained in the sagittal and axial planes. COMPARISON: 09/04/2021 CT FINDINGS: Normal foramen magnum and brainstem-cervical cord junction. Normal craniovertebral junction. Normal anterior atlantoaxial articulation. Normal odontoid process. Normal cervical lordosis. Normal vertebral bodies and posterior osseous elements. C2-3: Normal endplates. Normal disc height, signal and morphology. Normal central canal and intervertebral neural foramina. C3-4: Normal endplates. Mild disc bulge. Moderate spinal canal stenosis. Mild left neural foraminal stenosis.. C4-5: Fused level. Mild disc bulge. Mild spinal canal stenosis. Mild bilateral neural foraminal stenosis.. C5-6: Fused level. Uncovertebral hypertrophy eccentric to the left. No significant spinal canal stenosis. Bilateral perineural cysts in the neural foramina. C6-7: Normal endplates. Mild disc bulge. Mild spinal canal stenosis. Mild right neural foraminal stenosis. C7-T1: Normal endplates. Left lateral and foraminal disc bulge with moderate left neural foraminal stenosis. Normal spinal canal. There is vaguely elevated T2/STIR signal in the spinal cord between the levels of C3 and C7. Normal visualized soft tissue structures. MRI/Spine Cervical (Routine) IMPRESSION: 1. Moderate spinal canal stenosis at C3-4, and mild at C4-5 and C6-7, with vaguely elevated cord T2/STIR signal. There is no agustin cord enlargement. No myelomalacia. 2. Multilevel neural foraminal stenosis detailed above. Bilateral perineural cysts at C5-6. Electronically Signed: Rigo Gleason MD at 2:58 EDT ,
== END | disposition home or self-care (01) ==
PROVIDERS: PCP Internal Medicine; Referring Provider Internal Medicine; Visit Provider Internal Medicine
DX: M54.12 Radiculopathy, cervical region (principal); E11.9 Type 2 diabetes mellitus without complications; Z71.3 Dietary counseling and surveillance; R13.10 Dysphagia, unspecified
CPT/HCPCS: 72141; 97802

== ENCOUNTER 2022-01-12 10:46 | Day surgery (SDC) | payer MEDICARE, SELFPAY ==
[2022-01-12] VITALS (9 sets, daily range): BP systolic 104–140; BP diastolic 66–89; PULSE 67–80; RESP 16; TEMP 36.2–36.5; O2SAT 92–100; BMI 37.8
--- NOTE | 2022-01-12 | IMM_PTH ---
PATIENT: JULIO GILLESPIE LOC: EN U#:[id number] AGE/SX: 66/F ROOM: RE01/12/[address]: Dr. Tristen Cabrera DO : 1955 BED: DIS: 01/12/2022 SPEC #: [id number] RECD: 01/14/22 06:50 STATUS: ISSAC REAxel #: [id number] CLARA: 01/12/22 00:[address]: Tristen Cabrera DEPT: IMMUNOHISTOCHEMISTRY RECD BY: Edie Alves ENTERED: 01/14/22 06:50 SP TYPE: IMMUNO OTHR DR: Dr. Heather Ziegler MD Tissues: Gastric mucous membrane Procedures: H Pylori (initial) PHYSICIAN & INSTITUTION [place] [address] SPECIMEN INFORMATION: Tissue Source: Gastric ulcer Clinical Info: Difficulty swallowing Specimen Number: [id number] CPT code: 15389 METHODOLOGY: Deparaffinized sections of prefer/formalin-fixed tissue or PAP/DQ stained slides are incubated with monoclonal/polyclonal antibodies/oligonucleotide probes. Localization is made via biotin free immunoperoxidase method. Appropriate controls are performed and reacted as expected. Results on target cell population are indicated in the following table: RESULTS: ANTIBODY / CLONE RESULT H Pylori (polyclonal) negative These tests were developed and their performance characteristics determined by [facility]. They may not have been cleared or approved by the U.S. Food and Drug Administration. The FDA has determined that such clearance or approval is not necessary. The above immunohistochemical/dualISH markers are ordered and reviewed by the Pathologist. INTERPRETATION: Gastric ulcer, biopsy: Negative for Helicobacter pylori organisms. AM:darius
[2022-01-12] MEDS: Lactated Ringers 1,000 ML 15 ML IV (12:00)
--- NOTE | 2022-01-12 12:00 | EGD_PTH ---
PATIENT: JULIO GILLESPIE LOC: EN U#:[id number] AGE/SX: 66/F ROOM: RE01/12/[address]: Dr. Tristen Cabrera DO : 1955 BED: DIS: 01/12/2022 SPEC #: [id number] RECD: 01/12/22 17:08 STATUS: ISSAC LUDIVINA #: [id number] CLARA: 01/12/22 12:[address]: Tristen Cabrera DEPT: SURGICAL PATHOLOGY RECD BY: Edie Alves ENTERED: 01/13/22 07:35 SP TYPE: EGD BIOPSY OT DR: Dr. Heather Ziegler MD Tissues: Gastric mucous membrane Procedures: Surgery Specimen Level IV HEADER OPERATION: EGD ([facility]) with PEG PRE-OP DIAGNOSIS: Difficulty swallowing TISSUE SUBMITTED: Gastric ulcer MICROSCOPIC DIAGNOSIS Gastric ulcer, biopsy: Chronic active gastritis. See Comment. AM:am 01/14/2022 COMMENT The results of immunohistochemistry for Helicobacter pylori will be reported separately ([id number]). MICROSCOPIC DESCRIPTION Slides are reviewed. GROSS DESCRIPTION Received is one container labeled with the patient name and designated gastric ulcer. The specimen consists of one irregular fragment of light laura soft tissue that measures 0.5 x 0.3 x 0.1 cm. The specimen is totally submitted in one cassette. /SJ:darius 01/13/22 TC:3 CPT:06658
[2022-01-12 12:01] LABS: Bedside Glucose 171 mg/dL (74-106)
--- NOTE | 2022-01-12 12:09 | HP.PCM_ITS ---
HPI - General General Date of Admission: 01/12/22 Date of Service: 01/12/22 Chief Complaint: aspiration HPI Narrative JULIO GILLESPIE, is a 66 F who presents for PEG tube placement. She has had multiple episodes of aspiration pneumonia. She failed a swallowing test and it was deemed not safe for her to take in substances through her mouth. She denies any chest pain or shortness of breath. She says she only has occasional liquid food dysphagia but constant solid food dysphagia. 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 She still continues to have esophageal dysphagia. And is all other 16 review of systems are negative except as per body mentioned HPI [facility] Medical History Anxiety Arthritis Arthritis Asthma Back pain BiPAP (biphasic positive airway pressure) dependence Bleeding disorder Cancer Cardiology follow-up encounter Carpal tunnel syndrome Cataract Chest pain Chronic heart failure with preserved ejection fraction (HFpEF) COPD (chronic obstructive pulmonary disease) Depression Diabetes Dietary restriction Difficulty swallowing Dysphagia Dysuria Easy bruising Essential hypertension GERD (gastroesophageal reflux disease) Glaucoma Headache, migraine High triglycerides History of breast cancer History of echocardiogram History of edema History of IBS History of pain when walking History of renal disease History of steroid therapy History of stress test IBS (irritable bowel syndrome) Kidney failure Loss of hearing Lupus Migraine headache Neuropathy Nodular goiter Obesity Osteoarthritis Osteoporosis Parathyroid disorder Personality disorder PTSD (post-traumatic stress disorder) Restless legs Seasonal allergies Shortness of breath on exertion Stroke Syncope Thyroid disease Type 2 diabetes mellitus Venous hypertension of both lower extremities Wears dentures Wears glasses Home Medications albuterol sulfate 2.5 mg/0.5 mL solution for nebulization 5 mg inhalation Q6H 05/13/21 [History Last Taken 01/12/22] aspirin 81 mg tablet,delayed release 81 mg PO DAILY 05/13/21 [History Last Taken Unknown] biotin 1,000 mcg chewable tablet 1,000 mcg PO DAILY 05/13/21 [History Last Taken Unknown] brimonidine 0.2 %-timolol 0.5 % eye drops (Combigan) 1 drp ophthalmic (eye) BID 05/13/21 [History Last Taken 01/12/22] calcium carbonate 600 mg-vitamin D3 62.5 mcg (2,500 unit) capsule 1 cap PO QHS 05/13/21 [History Last Taken Unknown] diclofenac sodium 1 % topical gel 2 g topical ONCE 05/13/21 [History Last Taken Unknown] fluoxetine 20 mg capsule 20 mg PO DAILY 05/13/21 [History Last Taken Unknown] lactobacillus combination no.4 3 billion cell capsule (Probiotic) 3,000 mmu cells PO DAILY 05/13/21 [History Last Taken Unknown] magnesium 250 mg tablet 250 mg PO QHS 05/13/21 [History Last Taken Unknown] quetiapine 300 mg tablet 300 mg PO QHS #90 tabs 05/13/21 [Rx Last Taken Unknown] furosemide 40 mg tablet (Lasix) 40 mg PO DAILY #90 tabs 06/17/21 [Rx Last Taken Unknown] clonazepam 1 mg tablet 1 mg PO QHS #30 tabs 06/25/21 [Rx Last Taken Unknown] blood sugar diagnostic (True Metrix Glucose Test Strip) #100 ea 06/30/21 [Rx Last Taken Unknown] lancets 33 gauge #100 ea 06/30/21 [Rx Last Taken Unknown] cyclobenzaprine 10 mg tablet 10 mg PO HS #90 tabs 08/18/21 [Rx Last Taken Unknown] cevimeline 30 mg capsule 1 cap PO TID #270 caps 10/13/21 [Rx Last Taken 12/30/21 04:30] cholecalciferol (vitamin D3) 50 mcg (2,000 unit) capsule 50 mcg PO DAILY 10/29/21 [History Last Taken Unknown] gabapentin 100 mg capsule 100 mg PO TID 10/29/21 [History Last Taken 01/12/22] sumatriptan succinate 100 mg tablet 100 mg PO ONCE PRN MIGRAINES 10/29/21 [History Last Taken Unknown] pantoprazole 40 mg tablet,delayed release 40 mg PO BID #180 tabs 11/24/21 [Rx Last Taken 12/30/21 04:30] albuterol sulfate 90 mcg/actuation aerosol inhaler (Ventolin HFA) 2 puff inhalation Q4H PRN shortness of breath or wheezing #18 grams 11/26/21 [Rx Last Taken 01/12/22] ropinirole 1 mg tablet 1 mg PO TID #90 tabs 12/09/21 [Rx Last Taken Unknown] metformin 500 mg tablet 500 mg PO DAILY #180 tabs 12/21/21 [Rx Last Taken Unknown] black cohosh root extract 200 mg capsule 200 mg PO DAILY 12/24/21 [History Last Taken Unknown] clotrimazole-betamethasone 1 %-0.05 % topical cream 1 applic topical PRN PRN Skin Cleansing 12/24/21 [History Last Taken Unknown] rosuvastatin 20 mg tablet 20 mg PO QHS 12/24/21 [History Last Taken Unknown] levothyroxine 112 mcg tablet 112 mcg PO .Mon-Sat only #30 tabs 12/28/21 [Rx Last Taken 01/12/22] nystatin 100,000 unit/mL oral suspension 100,000 unit PO TID #200 mL 01/08/22 [Rx Last Taken Unknown] Allergy/AdvReac Type Severity Reaction Status Date / Time montelukast [From Singulair] Allergy Severe Itching Verified 01/12/22 11:27 oxycodone [From OxyContin] Allergy Severe Hives Verified 01/12/22 11:27 Penicillins Allergy Severe Anaphylaxis Verified 01/12/22 11:27 albuterol [From Combivent] Allergy Swelling Verified 01/12/22 11:27 banana Allergy Swelling Verified 01/12/22 11:27 beclomethasone Allergy Swelling Verified 01/12/22 11:27 budesonide Allergy Swelling Verified 01/12/22 11:27 carbamazepine Allergy Swelling Verified 01/12/22 11:27 Cephalosporins Allergy Swelling Verified 01/12/22 11:27 escitalopram Allergy Hives Verified 01/12/22 11:27 estradiol Allergy Hives Verified 01/12/22 11:27 fluticasone Allergy Burning Verified 01/12/22 11:27 ipratropium [From Combivent] Allergy Swelling Verified 01/12/22 11:27 levetiracetam [From Keppra] Allergy Hives Verified 01/12/22 11:27 lithium Allergy Hives Verified 01/12/22 11:27 Quinolones Allergy Hives Verified 01/12/22 11:27 tamsulosin [From Flomax] Allergy Swelling Verified 01/12/22 11:27 temocillin Allergy Swelling Verified 01/12/22 11:27 Tetracyclines Allergy Swelling Verified 01/12/22 11:27 tiotropium Allergy Swelling Verified 01/12/22 11:27 losartan AdvReac Intermediate Other Verified 01/12/22 11:27 morphine AdvReac Vomiting Verified 01/12/22 11:27 LEUKOTRIENE RECEPTOR Allergy Swelling Uncoded 01/12/22 11:27 ANTAGONIST Family History Father Colon cancer Sister Lung cancer Hormone imbalance Mental disorder Thyroid disorder Mother Heart disease Hypertension CVA (cerebral vascular accident) Other Alcoholism Angina at rest Anxiety Arthritis Bowel disease High cholesterol Surgical History H/O cervical spine surgery H/O foot surgery H/O hand surgery H/O shoulder surgery H/O thyroidectomy History of cholecystectomy History of esophagogastroduodenoscopy (EGD) History of esophagogastroduodenoscopy (EGD) History of hysterectomy History of left heart catheterization (10/08/09) History of mastectomy Hx of breast biopsy Hx of colonoscopy Hx of total knee arthroplasty Social History Smoking Status: Never smoker alcohol intake: never substance use type: does not use what type of physical activity do you participate in: walking ROS Review of Systems ROS Unobtainable: other Constitutional Constitutional: Denies fatigue, fever(s), poor appetite, weight gain or weight loss ENT HEENT: Denies mouth lesions Cardiovascular Cardiovascular: Denies abdominal bloating, abdominal edema or abdominal pain Respiratory/Chest Respiratory/Chest: Denies change in mental status, change in phlegm color, chest congestion or chest tightness Gastrointestinal Gastrointestinal: Reports dysphagia; Denies belching, bloating, change in bowel habits, change in stool character, chewing difficulty, coffee ground emesis, constipation, cramping, diarrhea, dyspepsia, early satiety, excessive flatus, fecal incontinence, heartburn, hematemesis, hematochezia, hemorrhoids, loose stools, melena, nausea, odynophagia, rectal bleeding, tenesmus, vomiting or weight changes Genitourinary Genitourinary: Denies abdominal discomfort, burning urination or itching Musculoskeletal Musculoskeletal: Reports as per HPI; Denies muscle weakness or myalgias Integumentary Integumentary: Denies jaundice Neurologic Neurologic: Denies lack of coordination or weakness Psychiatric Psychiatric: Denies confusion, depression, memory loss, mood swings, paranoia or suicidal ideation Endocrine Endocrinology: Denies systems reviewed and no addt'l complaints, except as documented Hematologic/Lymphatic Hematologic/Lymphatic: Denies anemia, easy bleeding, easy bruising or lymphadenopathy Allergic/Immunologic Allergic/Immunologic: Denies systems reviewed and no addt'l complaints, except as documented Vital Signs Vital Signs Vital Signs: 01/12/22 11:38 01/12/22 11:38 Temperature 97.6 F L Temperature Source Temporal Pulse Rate 70 Respiratory Rate 16 Respiratory Pattern Normal Blood Pressure 135/85 H Blood Pressure Mean 101 Blood Pressure Source Monitor Blood Pressure Position Semi-Fowlers Blood Pressure Location Right Arm Pulse Ox 97 Oxygen Delivery Method Room Air Weight Weight: 255 lb 11.779 oz Body Mass Index (BMI) 37.8 Physical Exam Const alert General Appearance: cooperative Orientation / Consciousness: oriented to person HEENT hearing grossly normal bilaterally Head and Scalp: normal to inspection Face and Sinus: face symmetric Nose: external nose normal Mouth: oral and palatal mucosa normal Eyes conjunctivae normal General Eye: normal appearance of both eyes Neck full ROM General: normal visual inspection Lymph Lymphatic: no lymphadenopathy noted Chest inspection of chest normal and palpation of chest normal Chest: symmetrical chest wall rise Resp normal respiratory effort Effort and Inspection: able to speak in complete sentences Cardio regular rate GI non-distended Percussion: normal to percussion Rectal Exam: deferred Neuro Speech: speech normal Gait (Neuro): normal gait Results Lab / Micro Data Labs: Laboratory Results - last 24 hr 01/12/22 11:36: POC Glucose 171 H Assessment & Plan Assessment/Plan (1) Difficulty swallowing: PLAN: We attempted to do esophageal manometry but she kept feeling like she was choking so it was unsuccessful to fully evaluate her entire esophagus for motility disorder. We will place a feeding tube today and hopefully will be temporary and we can take it out at a later time as she continues speech therapy. She was explained alternatives, risk, benefits include not withstanding bleeding, infection, sepsis, perforation, need for additional . She have an ASA 3. She will receive 2 g Ancef prior to procedure.
--- NOTE | 2022-01-12 12:51 | OP.EGD_ITS ---
Patient Name: Marely Pena Procedure Date: 01/12/2022 11:55 AM Date of : 1955 Age: 66 Procedure: Upper GI endoscopy Indications: Dysphagia, Failure to respond to medical treatment Providers: Tristen Cabrera DO Medicines: Monitored Anesthesia Care Patient Profile: This is a 66 year old female. Refer to note in patient chart for documentation of history and physical. Patient has symptoms of chronic dysphagia. Complications: No immediate complications. Procedure: Pre-Anesthesia Assessment: - Prior to the procedure, a History and Physical was performed, and patient medications and allergies were reviewed. The risks and benefits of the procedure and the sedation options and risks were discussed with the patient. All questions were answered and informed consent was obtained. Patient identification and proposed procedure were verified by the physician in the pre-procedure area. Mental Status Examination: alert and oriented. Airway Examination: normal oropharyngeal airway and neck mobility. Respiratory Examination: clear to auscultation. CV Examination: normal. Prophylactic Antibiotics: The patient does not require prophylactic antibiotics. Prior Anticoagulants: The patient has taken no previous anticoagulant or antiplatelet agents. ASA Grade Assessment: II - A patient with mild systemic disease. After reviewing the risks and benefits, the patient was deemed in satisfactory condition to undergo the procedure. The anesthesia plan was to use moderate sedation / analgesia (conscious sedation). Immediately prior to administration of medications, the patient was re-assessed for adequacy to receive sedatives. The heart rate, respiratory rate, oxygen saturations, blood pressure, adequacy of pulmonary ventilation, and response to care were monitored throughout the procedure. The physical status of the patient was re-assessed after the procedure. After obtaining informed consent, the endoscope was passed under direct vision. Throughout the procedure, the patient's blood pressure, pulse, and oxygen saturations were monitored continuously. The gastroscope was introduced through the mouth, and advanced to the second part of duodenum. The upper GI endoscopy was accomplished without difficulty. The patient tolerated the procedure well. Scope In: 12:23:19 PM Scope Out: 12:39:37 PM Total Procedure Duration Time 0 hours 16 minutes 18 seconds Findings: One benign-appearing, intrinsic stenosis was found 19 to 20 cm from the incisors. This stenosis was severe and. The stenosis was traversed. A guidewire was placed and the scope was withdrawn. Dilation was performed with a Savary dilator with no resistance at 60 Fr. The dilation site was examined following endoscope reinsertion and showed no change. Estimated blood loss was minimal. One non-bleeding superficial gastric ulcer with no stigmata of bleeding was found in the gastric antrum. The lesion was 6 mm in largest dimension. Biopsies were taken with a cold forceps for histology. Verification of patient identification for the specimen was done. Estimated blood loss was minimal. A few 5 mm sessile polyps with no stigmata of recent bleeding were found in the gastric antrum. A small hiatal hernia was present. The patient was placed in the supine position for PEG placement. The stomach was insufflated to appose gastric and abdominal holder. A site was located in the cardia with excellent transillumination for placement. The abdominal wall was marked and prepped in a sterile manner. The area was anesthetized with 1 mL of 0.5% lidocaine. The trocar needle was introduced through the abdominal wall and into the stomach under direct endoscopic view. A snare was introduced through the endoscope and opened in the gastric lumen. The guide wire was passed through the trocar and into the open snare. The snare was closed around the guide wire. The endoscope and snare were removed, pulling the wire out through the mouth. A skin incision was made at the site of needle insertion. The externally removable 20 Fr Bard gastrostomy tube was lubricated. The G-tube was tied to the guide wire and pulled through the mouth and into the stomach. The trocar needle was removed, and the gastrostomy tube was pulled out from the stomach through the skin. The external bumper was attached to the gastrostomy tube, and the tube was cut to remove the guide wire. The final position of the gastrostomy tube was confirmed by relook endoscopy, and skin marking noted to be 4 cm at the external bumper. The final tension and compression of the abdominal wall by the PEG tube and external bumper were checked and revealed that the bumper was loose and not touching the skin. The feeding tube was capped, and the tube site cleaned and dressed. The duodenal bulb was normal. Biopsies were taken with a cold forceps for histology. Impression: - Benign-appearing esophageal stenosis. Dilated. - Non-bleeding gastric ulcer with no stigmata of bleeding. Biopsied. - A few gastric polyps. - Small hiatal hernia. - Normal duodenal bulb. Biopsied. - An externally removable PEG placement was successfully completed. Recommendation: - Await pathology results. - Continue present medications. Procedure Code(s): --- Professional --- 45087, Esophagogastroduodenoscopy, flexible, transoral; with directed placement of percutaneous gastrostomy tube 29394, 51, Esophagogastroduodenoscopy, flexible, transoral; with insertion of guide wire followed by passage of dilator(s) through esophagus over guide wire [id number], 59, Esophagogastroduodenoscopy, flexible, transoral; with biopsy, single or multiple CPT copyright 2017 [employer]. All rights reserved. The codes documented in this report are preliminary and upon research manager review may be revised to meet current compliance requirements. Tristen Cabrera DO 01/12/2022 12:50:17 PM This report has been signed electronically. Number of Addenda: 1 Note Initiated On: 01/12/2022 11:55 AM Addendum Number: 1 Addendum Date: 03/04/2022 6:19:47 AM MAC was used as sedation for this procedure. Tristen Cabrera DO 03/04/2022 6:19:51 AM This report has been signed electronically.
--- NOTE | 2022-01-12 12:52 | OP.CCLET_ITS ---
03/04/2022 Heather Ziegler [facility] [address] [place] [address] Re : Upper GI endoscopy procedure for Marely Pena Dear Dr. Ziegler This procedure was performed on Wednesday, January 12, 2022. My impressions and recommendations are as follows: Impressions : - Benign-appearing esophageal stenosis. Dilated. - Non-bleeding gastric ulcer with no stigmata of bleeding. Biopsied. - A few gastric polyps. - Small hiatal hernia. - Normal duodenal bulb. Biopsied. - An externally removable PEG placement was successfully completed. Recommendations : - Await pathology results. - Continue present medications. My findings are described in the full procedure note, which is enclosed. If I can be of further assistance, please feel free to contact me at . Sincerely, Tristen Cabrera, 01/12/2022 12:50:17 PM This report has been signed electronically.
[2022-01-12] MEDS: HYDROcodone Bitartrate/Apap 5/325 Tablet PO (13:50)
== END 2022-01-12 14:56 | disposition home or self-care (01) ==
LOC: EN 10:49 → AC 10:50
PROVIDERS: PCP Internal Medicine; Referring Provider Internal Medicine; Visit Provider Internal Medicine Gastroenterology
PROC: 0DJ08ZZ Inspection of Upper Intestinal Tract, Via Natural or Artificial Opening Endoscopic (ICD-10-PCS; CPT 43235; principal; 2022-01-12 11:55)
DX: K22.2 Esophageal obstruction (principal); F25.9 Schizoaffective disorder, unspecified; M32.9 Systemic lupus erythematosus, unspecified; J44.9 Chronic obstructive pulmonary disease, unspecified; I50.32 Chronic diastolic (congestive) heart failure; I11.0 Hypertensive heart disease with heart failure; E11.40 Type 2 diabetes mellitus with diabetic neuropathy, unspecified; K29.50 Unspecified chronic gastritis without bleeding; Z87.01 Personal history of pneumonia (recurrent); F41.9 Anxiety disorder, unspecified; Z85.3 Personal history of malignant neoplasm of breast; G25.81 Restless legs syndrome; F43.10 Post-traumatic stress disorder, unspecified; M81.0 Age-related osteoporosis without current pathological fracture; Z86.73 Personal history of transient ischemic attack (TIA), and cerebral infarction without residual deficits; K58.9 Irritable bowel syndrome, unspecified; F32.A Depression, unspecified; Z79.82 Long term (current) use of aspirin; Z79.899 Other long term (current) drug therapy; Z68.37 Body mass index [BMI] 37.0-37.9, adult; G89.29 Other chronic pain; Z87.440 Personal history of urinary (tract) infections; K90.0 Celiac disease; K21.9 Gastro-esophageal reflux disease without esophagitis; K25.9 Gastric ulcer, unspecified as acute or chronic, without hemorrhage or perforation; K31.7 Polyp of stomach and duodenum; K44.9 Diaphragmatic hernia without obstruction or gangrene; E66.9 Obesity, unspecified
CPT/HCPCS: 43239; 43246; 43248; 82962; 88305; 88342; J7120; J2405

== ENCOUNTER → 2022-01-21 | Outpatient (CLI) | payer MEDICARE, SELFPAY ==
--- NOTE | 2022-01-21 09:48 | NM_ITS ---
CLINICAL: Right upper quadrant pain, feeding tube (for aspiration) GASTRIC EMPTYING-SULFUR COLLOID TECHNIQUE: The patient was orally administered 1.0 mCi of Tc-sulfur colloid in oatmeal. Gamma camera imaging acquisitions at 1-60 minutes post radiopharmaceutical administration was performed. COMPARISON STUDIES : NM - None. CR - Not available for review at this time. CT - Not available for review at this time. MR - Not available for review at this time. FINDINGS: There is normal filling and emptying of the stomach. No gastroesophageal reflux with normal passage into the small bowel. T 1/2 measures 66 minutes, within normal limits. NM/Gastric Emptying Study IMPRESSION: Normal gastric emptying nuclear medicine scan. Electronically Signed: Nicko Doherty MD ([place]) at 11:36 EDT ,
== END | disposition home or self-care (01) ==
LOC: NM 09:44
PROVIDERS: PCP Internal Medicine; Referring Provider Nurse Practitioner Adult Health; Visit Provider Nurse Practitioner Adult Health
DX: R10.11 Right upper quadrant pain (principal); E11.9 Type 2 diabetes mellitus without complications; R12 Heartburn
CPT/HCPCS: 78264; A9541

== ENCOUNTER 2022-01-26 11:00 | Outpatient (RCR) | payer MEDICARE, SELFPAY | END 2022-01-27 23:59 | LOC: NS 11:00 | PROVIDERS: PCP Internal Medicine; Referring Provider Nurse Practitioner Adult Health; Visit Provider Nurse Practitioner Adult Health | DX: Z71.3 Dietary counseling and surveillance (principal); E11.9 Type 2 diabetes mellitus without complications; R13.10 Dysphagia, unspecified | CPT/HCPCS: 97802; 97803 ==

== ENCOUNTER → 2022-02-10 | Outpatient (CLI) | payer MEDICARE, SELFPAY ==
--- NOTE | 2022-02-10 18:41 | STRESSREP_ITS ---
Stress Test Report Pharmacologic myocardial perfusion stress test. 66-year-old lady with a history of chest pain. Stress protocol: Resting EKG demonstrates normal sinus rhythm with a rate of 75 bpm incomplete right bundle branch block is noted resting blood pressure is 122/78 mmHg. 0.4 mg of regadenoson was infused per usual protocol followed by rapid intravenous saline flush injection continuous EKG monitoring was performed. The maximum heart rate attained was 87 bpm which was 55% of max impacted heart rate the maximum workload was 1 metabolic equivalent. At rest there were no ST or T wave changes noted to suggest abnormal flow reserve and at peak infusion nonspecific ST changes were noted with did not meet the criteria for ischemia. No clinical angina was noted. Myocardial perfusion protocol. 14.1 mCi of technetium 99m sestamibi was injected at rest. 0.4 mg of regadenoson was infused per usual protocol. At peak infusion 44.3 mCi of techne tium 99m sestamibi was injected stress images were obtained stress and rest images were reconstructed and compared in the short axis vertical long and horizontal long axis. Gated images were also obtained Perfusion SPECT analysis: Review of the stress images demonstrate normal uptake of tracer noted in all areas of the myocardium. The resting images similar demonstrate normal uptake of tracer noted in all areas of the myocardium. No areas of reversibility are noted to suggest ischemia and no previous infarct is noted. Gated SPECT analysis: The gated ejection fraction is 83%. Conclusion: Normal pharmacologic myocardial perfusion stress test. Preserved ejection fraction.
== END | disposition home or self-care (01) ==
LOC: CVS 06:04
PROVIDERS: PCP Internal Medicine; Referring Provider Nurse Practitioner Gerontology; Visit Provider Nurse Practitioner Gerontology
DX: R07.9 Chest pain, unspecified (principal)
CPT/HCPCS: 78452; 93017; A9500; A4216; J2785

== ENCOUNTER → 2022-02-11 | Outpatient (CLI) | payer MEDICARE, SELFPAY | END | disposition home or self-care (01) | PROVIDERS: PCP Internal Medicine; Referring Provider Internal Medicine; Visit Provider Internal Medicine | DX: Z20.822 Contact with and (suspected) exposure to COVID-19 (principal) | CPT/HCPCS: 87635; U0003; U0005 ==

== ENCOUNTER 2022-02-23 10:00 | Outpatient (RCR) | payer MEDICARE, SELFPAY | END 2022-02-26 23:59 | LOC: NS 10:00 | PROVIDERS: PCP Internal Medicine; Referring Provider Nurse Practitioner Adult Health; Visit Provider Nurse Practitioner Adult Health | DX: Z71.3 Dietary counseling and surveillance (principal); E11.9 Type 2 diabetes mellitus without complications; R13.10 Dysphagia, unspecified | CPT/HCPCS: 97803 ==

== ENCOUNTER → 2022-02-24 | Outpatient (CLI) | payer MEDICARE, SELFPAY ==
--- NOTE | 2022-02-24 11:15 | RAD_ITS ---
STUDY: X-RAY - LEFT FOOT CLINICAL: Female, 66 years old. Left foot pain and swelling. TECHNIQUE: 3 view(s) of the foot. COMPARISON: None. FINDINGS: Osteopenia. Superior and inferior calcaneal spurs. Mild arthrosis of the tibiotalar joint and subtalar joint. Mild arthrosis of the midfoot. Mild arthrosis of the TMT joints. First MTP joint arthroplasty and fusion of the DIP joint of the first digit. Mild arthrosis of the MTP and IP joints of the second through fifth digits. The soft tissue structures are unremarkable. RAD/Foot min 3 Views IMPRESSION: Osteopenia with calcaneal spurs, osteoarthritic changes, postsurgical changes of the first MTP and IP joints and osteoarthritic changes. No acute abnormality, evidence of erosive changes or fusion. Electronically Signed: Forest Machado, at 13:38 EDT ,
[2022-02-24 12:19] LABS: Absolute Lymphocyte Count 1.42 X10^3/uL (0.83-4.51); Absolute Neutrophil Count 7.6 X10^3/uL (2.0-7.7); Basophil# 0.05 X10^3/uL; Basophil% 0.5 % (0-1); Eosinophil# 0.41 X10^3/uL; Hemoglobin 12.6 g/dL (12.0-15.0); Lymphocyte # 1.42 X10^3/ul (0.83-4.51); Lymphocyte % 13.8 % (19-41); Mean Corp Hgb Conc 31.5 g/dL (32-36); Mean Platelet Vol. 10.9 fl (6.2-12.0); Monocyte# 0.77 X10^3/uL; Monocyte% 7.5 % (0-10); NRBC Flagged by Analyzer 0 % (0-5); Neutrophil # 7.62 X10^3/uL (2.7-7.7); Neutrophil % 73.7 % (47-70); Platelet Count 296 K/mm3 (150-450); RBC Distribution Width CV 13.9 % (11.6-14.6); RBC Distribution Width SD 46.5 fl (35.1-43.9); Red Blood Count 4.35 M/mm3 (4.2-5.4); White Blood Count 10.3 K/mm3 (4.4-11.0)
[2022-02-24 12:41] LABS: Hemoglobin A1c 7.3 % (3.8-5.6)
[2022-02-24 12:50] LABS: ALB/GLOB Ratio 0.8 RATIO (0.9-2.4); AST(SGOT) 14 U/L (15-37); Alanine Aminotransfer ALT/SGPT 19 U/L (13-56); Albumin, Serum 3.3 g/dL (3.2-5.0); Alkaline Phosphatase 112 U/L (45-117); Anion Gap 6 (5-15); BUN 12 mg/dL (7-18); Calcium,Total 8.9 mg/dL (8.5-10.1); Chloride 102 mmol/L (98-107); EST Glomerular Filtration Rate 59 mL/min (>60); Est Glom Filt Rate - Afr Amer 72 mL/min (>60); Globulin 3.9 g/dL (2.2-4.2); Glucose 150 mg/dL (74-106); Magnesium 2.3 mg/dL (1.6-2.6); Potassium 3.9 mmol/L (3.5-5.1); Protein, Total 7.2 g/dL (6.4-8.2); Sodium Level 140 mmol/L (136-145); T4 Free Direct 1.12 ng/dL (0.76-1.46)
== END | disposition home or self-care (01) ==
LOC: RAD 11:12
PROVIDERS: PCP Internal Medicine; Referring Provider Internal Medicine; Visit Provider Internal Medicine
DX: M79.672 Pain in left foot (principal); F25.9 Schizoaffective disorder, unspecified; J44.9 Chronic obstructive pulmonary disease, unspecified; E11.9 Type 2 diabetes mellitus without complications; R07.9 Chest pain, unspecified; M43.22 Fusion of spine, cervical region; M54.2 Cervicalgia; I10 Essential (primary) hypertension; M48.02 Spinal stenosis, cervical region; E03.9 Hypothyroidism, unspecified; K58.9 Irritable bowel syndrome, unspecified; E66.9 Obesity, unspecified; T17.308A Unspecified foreign body in larynx causing other injury, initial encounter; R06.00 Dyspnea, unspecified; R13.10 Dysphagia, unspecified; E07.9 Disorder of thyroid, unspecified; K21.9 Gastro-esophageal reflux disease without esophagitis; M19.90 Unspecified osteoarthritis, unspecified site; M81.0 Age-related osteoporosis without current pathological fracture; E78.1 Pure hyperglyceridemia
CPT/HCPCS: 36415; 73630; 80053; 83036; 83735; 84439; 84443; 84481; 85025

== ENCOUNTER → 2022-02-25 | Outpatient (CLI) | payer MEDICARE, SELFPAY ==
--- NOTE | 2022-02-25 13:09 | VDLE_ITS ---
Reason For Study: Pain Procedure LEFT This is a venous duplex using B-mode, color GSV is normal. flow and spectral Doppler. CFV is compressible, spontaneous, phasic, Exam performed in department. competent, and demonstrates normal A preliminary report was called and/or faxed augmentation. to Karlie. FV is compressible, spontaneous, phasic, competent and demonstrates normal augmentation. POP V is compressible, spontaneous, phasic, competent and demonstrates normal augmentation. T/P Trunk is compressible. PTV is compressible. LT PerV is compressible. VL/Venous Duplex US, Unilateral Interpretation Summary There is no evidence of left lower extremity deep vein thrombosis. Left great s aphenous vein appears patent and compressible segmentally. Ordering Physician: Heather Ziegler Referring Physician: Heather Ziegler Performed By: Shanice Flanagan RVT
== END | disposition home or self-care (01) ==
LOC: CVS 13:09
PROVIDERS: PCP Internal Medicine; Referring Provider Internal Medicine; Visit Provider Internal Medicine
DX: M79.672 Pain in left foot (principal); M79.89 Other specified soft tissue disorders
CPT/HCPCS: 93971

== ENCOUNTER 2022-03-09 10:26 | Outpatient (RCR) | payer MEDICARE, SELFPAY | END 2022-03-29 23:59 | LOC: NS 10:26 | PROVIDERS: PCP Internal Medicine; Referring Provider Nurse Practitioner Adult Health; Visit Provider Nurse Practitioner Adult Health | DX: Z71.3 Dietary counseling and surveillance (principal); E11.9 Type 2 diabetes mellitus without complications; R13.10 Dysphagia, unspecified | CPT/HCPCS: 97803 ==

== ENCOUNTER 2022-03-10 20:08 | Emergency (ER) | payer MEDICARE, SELFPAY ==
[2022-03-10 20:09] VITALS: BP 150/78; PULSE 99; RESP 16; TEMP 36.4; O2SAT 95; BMI 37.2
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
[2022-03-10] MEDS: cycloBENZAPRine HCl 10 MG Tablet PO (21:01)
[2022-03-10 21:23] LABS: Absolute Lymphocyte Count 1.96 X10^3/uL (0.83-4.51); Absolute Neutrophil Count 5.5 X10^3/uL (2.0-7.7); Basophil# 0.05 X10^3/uL; Basophil% 0.6 % (0-1); Eosinophil# 0.45 X10^3/uL; Eosinophils% 5.1 % (0-5); Hematocrit 39.6 % (37-47); Hemoglobin 12.5 g/dL (12.0-15.0); Lymphocyte # 1.96 X10^3/ul (0.83-4.51); Lymphocyte % 22.4 % (19-41); Mean Corp Hgb Conc 31.6 g/dL (32-36); Mean Corpuscular Hgb 28.6 pg (27.0-32.0); Mean Corpuscular Volume 90.6 fL (81-99); Mean Platelet Vol. 10.7 fl (6.2-12.0); Monocyte# 0.73 X10^3/uL; Monocyte% 8.3 % (0-10); NRBC Flagged by Analyzer 0 % (0-5); Neutrophil # 5.54 X10^3/uL (2.7-7.7); Neutrophil % 63.3 % (47-70); Platelet Count 256 K/mm3 (150-450); RBC Distribution Width CV 14.1 % (11.6-14.6); RBC Distribution Width SD 46.5 fl (35.1-43.9); Red Blood Count 4.37 M/mm3 (4.2-5.4); White Blood Count 8.8 K/mm3 (4.4-11.0)
--- NOTE | 2022-03-10 21:24 | ED.RN ---
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
[2022-03-10 21:33] LABS: Amphetamine Urine VISTA NEGATIVE (<1000 ng/mL); Barbiturate Urine VISTA NEGATIVE (< 200 ng/mL); Benzodiazepine Urine VISTA NEGATIVE (< 200 ng/mL); Cocaine Urine VISTA NEGATIVE (< 300 ng/mL); Ecstacy Urine VISTA NEGATIVE (< 500 ng/mL); Methadone Urine VISTA NEGATIVE (< 300 ng/mL); PCP Urine VISTA NEGATIVE (< 25 ng/mL); THC Urine VISTA NEGATIVE (< 50 ng/mL); Vista UDS pH Range 7
[2022-03-10 21:37] LABS: Anion Gap 6 (5-15); BUN 14 mg/dL (7-18); BUN/Creat Ratio 15.7 RATIO (10-20); Calcium,Total 9.2 mg/dL (8.5-10.1); Chloride 105 mmol/L (98-107); Creatinine, Serum 0.89 mg/dL (0.55-1.02); EST Glomerular Filtration Rate 68 mL/min (>60); Est Glom Filt Rate - Afr Amer 82 mL/min (>60); Estimated Creatinine Clearance 66.74 ml/min; Glucose 138 mg/dL (74-106); Potassium 3.8 mmol/L (3.5-5.1); Sodium Level 140 mmol/L (136-145)
[2022-03-10 21:40] LABS: Alcohol, Blood (Medical)-Serum < 3.0 mg/dL
--- NOTE | 2022-03-10 22:34 | NURSING ---
FAXED CRISIS CHART
[2022-03-11 00:06] VITALS: BP 160/62; PULSE 90; RESP 16; TEMP 36.8; O2SAT 94
--- NOTE | 2022-03-11 00:50 | ED.RN ---
CRISIS ON THE PHONE AT THIS TIME
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
[2022-03-11 02:00] VITALS: RESP 18
[2022-03-11 04:00] VITALS: RESP 15
[2022-03-11 06:00] VITALS: RESP 16
== END 2022-03-11 09:01 | disposition home or self-care (01) ==
PROVIDERS: Emergency Provider Emergency Medicine; PCP Internal Medicine; Visit Provider Emergency Medicine
DX: R45.851 Suicidal ideations (principal); Z93.1 Gastrostomy status; J44.9 Chronic obstructive pulmonary disease, unspecified; I11.0 Hypertensive heart disease with heart failure; I50.32 Chronic diastolic (congestive) heart failure; F60.9 Personality disorder, unspecified; E11.40 Type 2 diabetes mellitus with diabetic neuropathy, unspecified; R13.12 Dysphagia, oropharyngeal phase; F41.9 Anxiety disorder, unspecified; J45.909 Unspecified asthma, uncomplicated; F32.9 Major depressive disorder, single episode, unspecified; K21.9 Gastro-esophageal reflux disease without esophagitis; H40.9 Unspecified glaucoma; M19.90 Unspecified osteoarthritis, unspecified site; Z79.82 Long term (current) use of aspirin; Z79.51 Long term (current) use of inhaled steroids; Z79.899 Other long term (current) drug therapy; Z20.822 Contact with and (suspected) exposure to COVID-19; L93.2 Other local lupus erythematosus; E66.9 Obesity, unspecified; M81.0 Age-related osteoporosis without current pathological fracture; F43.10 Post-traumatic stress disorder, unspecified; G25.81 Restless legs syndrome; Z86.73 Personal history of transient ischemic attack (TIA), and cerebral infarction without residual deficits; I65.21 Occlusion and stenosis of right carotid artery
CPT/HCPCS: 80048; 80307; 82077; 85025; 87811; 93880; 99284

== ENCOUNTER → 2022-03-10 | Outpatient (CLI) | payer MEDICARE, SELFPAY ==
--- NOTE | 2022-03-10 09:39 | CDU_ITS ---
Reason For Study: CAROTID STENOSIS Rt. Velocities/BP Lt. Velocities/BP Prox CCA 95.2/19.3 cm/sec. Prox CCA 84.6/20.8 cm/sec. Mid CCA 94.1/19.3 cm/sec. Mid CCA 85.8/18.3 cm/sec. Dist CCA 83.1/13.8 cm/sec. Dist CCA 90.7/20.8 cm/sec. Prox ICA 141.7/54.1 cm/sec. Prox ICA 66.6/7.6 cm/sec. Mid ICA 161.6/43.0 cm/sec. Mid ICA 100.6/24.7 cm/sec. Dist ICA 125.8/30.9 cm/sec. Dist ICA 149.0/44.9 cm/sec. Rt. ICA/CCA = 161.6/94.1=1.7. Lt. ICA/CCA = 149.0/85.8=1.7. Prox ECA 123.5/15.7 cm/sec. Prox ECA 140.5/14.4 cm/sec. Rt. Vert. 93.0/18.1 cm/sec. Lt. Vert. 56.4/17.1 cm/sec. Right Extracranial There is homogeneous, smooth atherosclerotic plaque noted in the right common carotid artery. There is heterogeneous, irregular atherosclerotic plaque noted in the right internal carotid artery. The tortuous nature of the right internal carotid artery may result in flow velocities overestimating the degree of stenosis. There is homogeneous, smooth atherosclerotic plaque noted in the right external carotid artery. Antegrade flow is noted in the right vertebral artery. Left Extracranial There is intimal thickening but no significant atherosclerotic plaque noted in the left common carotid artery. There is intimal thickening but no significant atherosclerotic plaque noted in the left internal carotid artery. The tortuous nature of the left internal carotid artery may result in flow velocities overestimating the degree of stenosis. There is intimal thickening but no significant atherosclerotic plaque noted in the left external carotid artery. Antegrade flow is noted in the left vertebral artery. Procedure Carotid Duplex [id number]. This is a Carotid Duplex examination using B-mode, color flow and specral Doppler. Exam performed in department. VL/Carotid Duplex Ultrasound Interpretation Summary Moderate (50-69%) stenosis right extracranial internal carotid. Normal left ext racranial internal carotid. Patent and antegrade vertebrals bilaterally. Moderate (50-69%) stenosi s right extracranial internal carotid. Normal left extracranial internal carotid. Patent and antegrade vertebrals bilaterally. Tortuous vessels bilateral; likely responsible for elevated left carotid veloci ties Ordering Physician: Liz Espinosa Referring Physician: Heather Ziegler Performed By: Salma Garcia, KINGSLEY, RVT
== END | disposition home or self-care (01) ==
LOC: CVS 09:39
PROVIDERS: PCP Internal Medicine; Referring Provider Nurse Practitioner Gerontology; Visit Provider Nurse Practitioner Gerontology
DX: Z00.00 Encounter for general adult medical examination without abnormal findings (principal)
CPT/HCPCS: 93880

== ENCOUNTER 2022-04-14 09:58 | Outpatient (CLI) | payer MEDICARE, SELFPAY ==
[2022-04-14 11:25] LABS: Absolute Lymphocyte Count 1.51 X10^3/uL (0.83-4.51); Absolute Neutrophil Count 6.3 X10^3/uL (2.0-7.7); Basophil# 0.04 X10^3/uL; Basophil% 0.4 % (0-1); Eosinophil# 0.63 X10^3/uL; Eosinophils% 6.9 % (0-5); Hematocrit 40.9 % (37-47); Hemoglobin 12.6 g/dL (12.0-15.0); Lymphocyte # 1.51 X10^3/ul (0.83-4.51); Lymphocyte % 16.6 % (19-41); Mean Corp Hgb Conc 30.8 g/dL (32-36); Mean Corpuscular Hgb 28.4 pg (27.0-32.0); Mean Corpuscular Volume 92.1 fL (81-99); Monocyte# 0.63 X10^3/uL; Monocyte% 6.9 % (0-10); NRBC Flagged by Analyzer 0 % (0-5); Neutrophil # 6.26 X10^3/uL (2.7-7.7); Neutrophil % 68.9 % (47-70); Platelet Count 247 K/mm3 (150-450); RBC Distribution Width CV 14.3 % (11.6-14.6); RBC Distribution Width SD 48.9 fl (35.1-43.9); Red Blood Count 4.44 M/mm3 (4.2-5.4); White Blood Count 9.1 K/mm3 (4.4-11.0)
[2022-04-14 12:04] LABS: ALB/GLOB Ratio 0.8 RATIO (0.9-2.4); AST(SGOT) 17 U/L (15-37); Alanine Aminotransfer ALT/SGPT 21 U/L (13-56); Albumin, Serum 3.1 g/dL (3.2-5.0); Alkaline Phosphatase 124 U/L (45-117); Anion Gap 6 (5-15); BUN 14 mg/dL (7-18); BUN/Creat Ratio 13.7 RATIO (10-20); Calcium,Total 8.9 mg/dL (8.5-10.1); Chloride 105 mmol/L (98-107); Creatinine, Serum 1.02 mg/dL (0.55-1.02); EST Glomerular Filtration Rate 58 mL/min (>60); Est Glom Filt Rate - Afr Amer 70 mL/min (>60); Globulin 3.7 g/dL (2.2-4.2); Glucose 172 mg/dL (74-106); Potassium 3.6 mmol/L (3.5-5.1); Protein, Total 6.8 g/dL (6.4-8.2); Sodium Level 142 mmol/L (136-145)
== END 2022-04-14 23:59 | disposition home or self-care (01) ==
LOC: LAB 10:00
PROVIDERS: PCP Internal Medicine; Referring Provider Internal Medicine Rheumatology; Visit Provider Internal Medicine Rheumatology
DX: I50.9 Heart failure, unspecified (principal); M06.4 Inflammatory polyarthropathy; M35.00 Sjogren syndrome, unspecified; J44.9 Chronic obstructive pulmonary disease, unspecified; E11.22 Type 2 diabetes mellitus with diabetic chronic kidney disease; Z79.899 Other long term (current) drug therapy; M79.7 Fibromyalgia; K58.9 Irritable bowel syndrome, unspecified; K90.0 Celiac disease; E78.5 Hyperlipidemia, unspecified; N18.9 Chronic kidney disease, unspecified
CPT/HCPCS: 36415; 80053; 85025

== ENCOUNTER → 2022-05-10 | Outpatient (CLI) | payer MEDICARE, SELFPAY ==
[2022-05-10 10:32] LABS: Absolute Neutrophil Count 10.1 X10^3/uL (2.0-7.7); Basophil# 0.05 X10^3/uL; Basophil% 0.3 % (0-1); Eosinophil# 0.55 X10^3/uL; Eosinophils% 3.7 % (0-5); Hematocrit 43.4 % (37-47); Hemoglobin 13.6 g/dL (12.0-15.0); Lymphocyte % 21.4 % (19-41); Mean Corp Hgb Conc 31.3 g/dL (32-36); Mean Corpuscular Hgb 28.8 pg (27.0-32.0); Mean Corpuscular Volume 91.9 fL (81-99); Mean Platelet Vol. 10.7 fl (6.2-12.0); Monocyte# 0.98 X10^3/uL; Monocyte% 6.5 % (0-10); NRBC Flagged by Analyzer 0 % (0-5); Neutrophil # 10.09 X10^3/uL (2.7-7.7); Neutrophil % 67.4 % (47-70); Platelet Count 300 K/mm3 (150-450); RBC Distribution Width CV 14.8 % (11.6-14.6); Red Blood Count 4.72 M/mm3 (4.2-5.4)
[2022-05-10 11:01] LABS: Anion Gap 3 (5-15); BUN 19 mg/dL (7-18); BUN/Creat Ratio 18.3 RATIO (10-20); Calcium,Total 8.5 mg/dL (8.5-10.1); Chloride 100 mmol/L (98-107); Creatinine, Serum 1.04 mg/dL (0.55-1.02); EST Glomerular Filtration Rate 57 mL/min (>60); Est Glom Filt Rate - Afr Amer 68 mL/min (>60); Glucose 218 mg/dL (74-106); Potassium 3.5 mmol/L (3.5-5.1); Sodium Level 138 mmol/L (136-145)
== END | disposition home or self-care (01) ==
LOC: LAB 09:03
PROVIDERS: PCP Internal Medicine; Referring Provider Nurse Practitioner Gerontology; Visit Provider Nurse Practitioner Gerontology
DX: R42 Dizziness and giddiness (principal)
CPT/HCPCS: 36415; 80048; 85025

== ENCOUNTER → 2022-05-11 | Outpatient (CLI) | payer MEDICARE, SELFPAY ==
[2022-05-11 13:54] VITALS: PULSE 100; PULSE 101; PULSE 102; PULSE 104; PULSE 110; PULSE 113; PULSE 92; PULSE 99; O2SAT 92; O2SAT 93; O2SAT 94; O2SAT 96; O2SAT 97
--- NOTE | 2022-05-13 08:04 | PCM.PSN.6M ---
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 Assistive device used: None Pre-test Oxygen Delivery Method Room Air Pulse Ox (%) 97 Pulse Rate (60-100 beats/min) 100 Dyspnea Elias Scale (0-10) 0 Exertion Elias Scale (6-20) 6 1st minute Oxygen Delivery Method Room Air Pulse Ox (%) 96 Pulse Rate (60-100 beats/min) 92 2nd minute Oxygen Delivery Method Room Air Pulse Ox (%) 93 Pulse Rate (60-100 beats/min) 101 H 3rd minute Oxygen Delivery Method Room Air Pulse Ox (%) 96 Pulse Rate (60-100 beats/min) 113 H 4th minute Oxygen Delivery Method Room Air Pulse Ox (%) 97 Pulse Rate (60-100 beats/min) 104 H 5th minute Oxygen Delivery Method Room Air Pulse Ox (%) 92 Pulse Rate (60-100 beats/min) 102 H 6th minute Oxygen Delivery Method Room Air Pulse Ox (%) 94 Pulse Rate (60-100 beats/min) 110 H Dyspnea Elias Scale (0-10) 3 Exertion Elias Scale (6-20) 11 Post-test Oxygen Delivery Method Room Air Pulse Ox (%) 96 Pulse Rate (60-100 beats/min) 99 Full Laps Walked 15 Partial Lap, Number of Tiles Walked 10 Total Distance Walked (ft) 895 Interpretation Interpretation: The patient ambulated 895 feet over the course of 6 minutes beginning on room air without assistive devices. Pretesting oxygen saturation was noted to be 97% on room air. With ambulation, the cristhian oxygen saturation was 92%. This represents a significant exertional oxygen desaturation. Recommendations Recommendations: There is no indication for the use of supplemental oxygen at this time. However, close interval follow-up is recommended, given the degree of oxygen desaturation noted during this study.
== END | disposition home or self-care (01) ==
LOC: PSN 13:21
PROVIDERS: PCP Internal Medicine; Visit Provider Nurse Practitioner Acute Care
DX: R06.00 Dyspnea, unspecified (principal)
CPT/HCPCS: 94618

== ENCOUNTER 2022-05-13 09:04 | Day surgery (SDC) | payer MEDICARE, SELFPAY ==
--- NOTE | 2022-05-13 09:51 | PCM.HP.BLA ---
History and Physical Date of Admission: 05/13/22 JULIO GILLESPIE, is a 66 F who presents to the office today for 2 month f/u dysphagia. She has oropharyngeal dysphagia, complicated by hx of jaw injury and lack of teeth/lack of dentures, as well as Sjogren's. Dr Cabrera placed PEG tube in 12/2021; she reports she has not felt well since the PEG was placed--has nausea, diarrhea, glucose spikes, feels dehydrated, feels malnourished. She did work closely with registered private duty nurse on tube feeds. She would like PEG removed. She states she is able to swallow her pills w/o difficulty, puts the large ones in pudding. She states she now knows what foods she can eat w/ relative ease and what she should avoid. She understands risk for aspiration. She has been followed by [facility]. Diagnosed with oropharyngeal dysphagia by speech therapy. She has also been evaluated by ENT. We attempted manometry but she didn't tolerate it. Gastric emptying study is normal. Hx of GERD, on PPI BID.?She has Sjogren's disease. She has celiac disease; follows a gluten-free diet the best she can considering financial constraints. Takes Linzess prn for constipation--hasn't really needed it since PEG due to diarrhea. On 12/30/[address] Cabrera found Felisha Boggs tear, esophageal stenosis which he dilated, neg Kumar's. He did EGD again on 01/12/22; dilated esophageal stenosis, biopsied gastric ulcer (benign, neg H pylori), small hiatal hernia, placed PEG tube. ? ROS Const Constitutional: Positive for fatigue and weight change ENT ENT: No difficulty swallowing Cardio Cardiology: Positive for leg pain with exertion Gastro GI: Positive for abdominal pain, diarrhea and nausea/dyspepsia; No belching, bloating, change in bowel habits, change in stool character, coffee ground emesis, constipation, cramping, heartburn, difficulty swallowing, feeling full early, excessive flatus, incontinent of stools, Vomiting blood/hematemesis, Blood in stool, loose stools, Black,tarry stools, pain with swallowing, vomiting or other Musc Musculoskeletal: Positive for abnormal gait, joint pain, joint swelling, numbness, tingling, Arthritis and leg pain with exertion Skin Skin: No yellowing of the eye or itchy eyes Neuro Neurology: Positive for abnormal gait, numbness and tingling Psych Psychiatric: Positive for anxiety and Positive for depression Endo Endocrine: Positive for fatigue and weight change Aller/Imm Allergy/Immunologic: No itchy eyes Chevy/Lymp Hematologic/Lymphatic: Positive for easy bruising; No easy bleeding Exam Const General: cooperative and comfortable Nutritional Appearance: obese Orientation: alert, awake and oriented x3 Quality Reporting Tobacco Screening ([facility] 138) Smoking Status: Never smoker Assessment and Plan Assessment and Plan (1) Dysphagia: ?Status:?Acute ?Qualifiers: ?Dysphagia type:?oropharyngeal phase? Qualified Code(s):?R13.12 - Dysphagia, oropharyngeal phase ?Plan: 66 yo lady who requests removal of PEG tube which Dr Cabrera placed due to oropharyngeal dysphagia which is complicated by edentulous status, hx jaw injury, Sjogren's. She worked w/ spray mixer to try to make tube feedings work. We will schedule EGD for removal of PEG tube. She declines referral back to speech therapy at this time. F/u after PEG removal. Refill PPI. ? ? ? Medications: Refilled I have examined the patient and the H&P has been reviewed. There are no clinical changes since date of exam.
[2022-05-13] MEDS: Lactated Ringers 1,000 ML 15 ML IV (10:03)
[2022-05-13 10:04] VITALS: BP 104/35; PULSE 75; RESP 18; TEMP 37.1; O2SAT 98; BMI 36.4
--- NOTE | 2022-05-13 10:45 | EGD_PTH ---
PATIENT: JULIO GILLESPIE LOC: EN U#:[id number] AGE/SX: 67/F ROOM: RE05/13/[address]: Dr. Tristen Cabrera DO : 1955 BED: DIS: 05/13/2022 SPEC #: [id number] RECD: 05/14/22 15:09 STATUS: ISASC REAxel #: [id number] CLARA: 05/13/22 10:[address]: Tristen Cabrera DEPT: SURGICAL PATHOLOGY RECD BY: Sammi Castro ENTERED: 05/14/22 13:00 SP TYPE: EGD [facility] DR: Dr. Heather Ziegler MD Tissues: Gastric mucous membrane Procedures: Surgery Specimen Level IV HEADER OPERATION: EGD with biopsy ([facility]), PEG removal PRE-OP DIAGNOSIS: Oropharyngeal dysphagia TISSUE SUBMITTED: Gastric body biopsy MICROSCOPIC DIAGNOSIS Gastric body, biopsy: Mild to moderate gastritis. See microscopic description and comment. SJ:donn 05/17/2022 COMMENT The results of immunohistochemistry for Helicobacter pylori will be reported separately ([id number]). MICROSCOPIC DESCRIPTION Slides are reviewed. The specimen shows fragments of gastric mucosa with chronic inflammatory cell infiltrates in the lamina propria consisting of lymphocytes and plasma cells, consistent with mild to moderate chronic gastritis. GROSS DESCRIPTION Received in fixative is one container labeled with the patient's name and designated biopsy gastric body. The specimen consists of two irregular fragments of light laura soft tissue that in aggregate measure 0.8 x 0.3 x 0.1 cm. The specimen is totally submitted in one cassette. / AM:donn 05/14/2022 TC:3 CPT: 99629
--- NOTE | 2022-05-13 10:45 | IMM_PTH ---
PATIENT: JULIO GILLESPIE LOC: EN U#:[id number] AGE/SX: 67/F ROOM: RE05/13/[address]: Dr. Tristen Cabrera DO : 1955 BED: DIS: 05/13/2022 SPEC #: [id number] RECD: 05/14/22 14:46 STATUS: ISSAC REQ #: [id number] CLARA: 05/13/22 10:[address]: Tristen Cabrera DEPT: IMMUNOHISTOCHEMISTRY RECD BY: Katherine Ramirez ENTERED: 05/14/22 14:47 SP TYPE: IMMUNO OTHR DR: Dr. Heather Ziegler MD Tissues: Stomach, NOS Procedures: H Pylori (initial) PHYSICIAN & INSTITUTION [place] [id number] SPECIMEN INFORMATION: Tissue Source: Gastric body Clinical Info: Oropharyngeal dysphagia Specimen Number: [id number] CPT code: 05829 METHODOLOGY: Deparaffinized sections of prefer/formalin-fixed tissue or PAP/DQ stained slides are incubated with monoclonal/polyclonal antibodies/oligonucleotide probes. Localization is made via biotin free immunoperoxidase method. Appropriate controls are performed and reacted as expected. Results on target cell population are indicated in the following table: RESULTS: ANTIBODY / CLONE RESULT H Pylori (polyclonal) negative These tests were developed and their performance characteristics determined by [facility]. They may not have been cleared or approved by the U.S. Food and Drug Administration. The FDA has determined that such clearance or approval is not necessary. The above immunohistochemical/dualISH markers are ordered and reviewed by the Pathologist. INTERPRETATION: Gastric body, biopsy: Negative for Helicobacter pylori organisms. SJ:donn 05/17/2022
[2022-05-13 10:46] LABS: Bedside Glucose 145 mg/dL (74-106)
[2022-05-13 11:26] VITALS: BP 104/35; BP 122/76; PULSE 79; RESP 18; TEMP 36.9; O2SAT 97
--- NOTE | 2022-05-13 11:27 | OP.EGD_ITS ---
Patient Name: Marely Pena Procedure Date: 05/13/2022 11:05 AM Date of : 1955 Age: 67 Procedure: Upper GI endoscopy Indications: Dysphagia Providers: Tristen Cabrera DO Referring MD: Heather Ziegler Medicines: Monitored Anesthesia Care Patient Profile: This is a 67 year old female. Refer to note in patient chart for documentation of history and physical. Patient has symptoms of chronic dysphagia. She is status post EGD for PEG placement within the past three months. Complications: No immediate complications. Procedure: Pre-Anesthesia Assessment: - Prior to the procedure, a History and Physical was performed, and patient medications and allergies were reviewed. The patient is competent. The risks and benefits of the procedure and the sedation options and risks were discussed with the patient. All questions were answered and informed consent was obtained. Patient identification and proposed procedure were verified by the physician in the pre-procedure area. Mental Status Examination: normal. Prophylactic Antibiotics: The patient does not require prophylactic antibiotics. Prior Anticoagulants: The patient has taken no previous anticoagulant or antiplatelet agents. After reviewing the risks and benefits, the patient was deemed in satisfactory condition to undergo the procedure. The anesthesia plan was to use minimal sedation / analgesia (anxiolysis). Immediately prior to administration of medications, the patient was re-assessed for adequacy to receive sedatives. The heart rate, respiratory rate, oxygen saturations, blood pressure, adequacy of pulmonary ventilation, and response to care were monitored throughout the procedure. The physical status of the patient was re-assessed after the procedure. After obtaining informed consent, the endoscope was passed under direct vision. Throughout the procedure, the patient's blood pressure, pulse, and oxygen saturations were monitored continuously. The Endoscope was introduced through the mouth, and advanced to the second part of duodenum. The upper GI endoscopy was accomplished without difficulty. The patient tolerated the procedure well. Scope In: 11:14:43 AM Scope Out: 11:19:22 AM Total Procedure Duration Time 0 hours 4 minutes 39 seconds Findings: No gross lesions were noted in the entire esophagus. There was evidence of an intact gastrostomy with a patent G-tube present in the gastric body. The PEG required removal because it was no longer necessary. The PEG was cut externally, grasped, and removed with the scope. Removal was easily accomplished. Patchy mild inflammation was found in the gastric body. Biopsies were taken with a cold forceps for histology. Verification of patient identification for the specimen was done. No gross lesions were noted in the second portion of the duodenum. Impression: - No gross lesions in esophagus. - Intact gastrostomy with a patent G-tube present. - Gastritis. Biopsied. - No gross lesions in the second portion of the duodenum. - The PEG was cut externally, grasped, and removed with the scope because it was no longer necessary. Recommendation: - Discharge patient to home. - Resume previous diet. - Continue present medications. - Await pathology results. - Repeat upper endoscopy in 1 year for surveillance based on pathology results. Procedure Code(s): --- Professional --- 52588, Esophagogastroduodenoscopy, flexible, transoral; with removal of foreign body(s) 84551, Esophagogastroduodenoscopy, flexible, transoral; with biopsy, single or multiple CPT copyright 2017 [employer]. All rights reserved. 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 Tristen Cabrera DO 05/13/2022 11:26:49 AM This report has been signed electronically. Number of Addenda: 0 Note Initiated On: 05/13/2022 11:05 AM
--- NOTE | 2022-05-13 11:28 | OP.CCLET_ITS ---
05/13/2022 Heather Ziegler [facility] [address] [place] [address] Re : Upper GI endoscopy procedure for Marely Pena Dear Dr. Ziegler This procedure was performed on April. My impressions and recommendations are as follows: Impressions : - No gross lesions in esophagus. - Intact gastrostomy with a patent G-tube present. - Gastritis. Biopsied. - No gross lesions in the second portion of the duodenum. - The PEG was cut externally, grasped, and removed with the scope because it was no longer necessary. Recommendations : - Discharge patient to home. - Resume previous diet. - Continue present medications. - Await pathology results. - Repeat upper endoscopy in 1 year for surveillance based on pathology results. My findings are described in the full procedure note, which is enclosed. If I can be of further assistance, please feel free to contact me at . Sincerely, Tristen Cabrera, 05/13/2022 11:26:49 AM This report has been signed electronically.
[2022-05-13 11:30] VITALS: BP 104/35; BP 113/92; PULSE 82; RESP 18; O2SAT 97
[2022-05-13 11:35] VITALS: BP 104/35; BP 144/83; PULSE 79; RESP 18; O2SAT 97
[2022-05-13 11:40] VITALS: BP 104/35; BP 147/82; PULSE 79; RESP 18; TEMP 37; O2SAT 97
[2022-05-13 11:50] VITALS: BP 104/35
== END 2022-05-13 12:32 | disposition home or self-care (01) ==
LOC: EN 09:05 → AC 09:14
PROVIDERS: PCP Internal Medicine; Referring Provider Internal Medicine; Visit Provider Internal Medicine Gastroenterology
PROC: 0DJ08ZZ Inspection of Upper Intestinal Tract, Via Natural or Artificial Opening Endoscopic (ICD-10-PCS; CPT 43235; principal; 2022-05-13 10:40)
DX: K29.50 Unspecified chronic gastritis without bleeding (principal); Z93.1 Gastrostomy status; E11.9 Type 2 diabetes mellitus without complications; K21.9 Gastro-esophageal reflux disease without esophagitis; G25.81 Restless legs syndrome; E07.9 Disorder of thyroid, unspecified; Z86.73 Personal history of transient ischemic attack (TIA), and cerebral infarction without residual deficits; Z79.82 Long term (current) use of aspirin; Z79.84 Long term (current) use of oral hypoglycemic drugs; Z79.899 Other long term (current) drug therapy
CPT/HCPCS: 43239; 43247; 82962; 88305; 88342; J7120; J2405

== ENCOUNTER → 2022-05-27 | Outpatient (CLI) | payer MEDICARE, SELFPAY ==
[2022-05-27 08:48] LABS: Absolute Lymphocyte Count 0.99 X10^3/uL (0.83-4.51); Absolute Neutrophil Count 8.7 X10^3/uL (2.0-7.7); Basophil# 0.04 X10^3/uL; Basophil% 0.4 % (0-1); Eosinophil# 0.23 X10^3/uL; Eosinophils% 2.2 % (0-5); Hemoglobin 13.4 g/dL (12.0-15.0); Lymphocyte # 0.99 X10^3/ul (0.83-4.51); Lymphocyte % 9.4 % (19-41); Mean Corp Hgb Conc 32.7 g/dL (32-36); Mean Corpuscular Hgb 29.7 pg (27.0-32.0); Mean Corpuscular Volume 90.9 fL (81-99); Mean Platelet Vol. 10.1 fl (6.2-12.0); Monocyte# 0.59 X10^3/uL; Monocyte% 5.6 % (0-10); NRBC Flagged by Analyzer 0 % (0-5); Neutrophil # 8.65 X10^3/uL (2.7-7.7); Platelet Count 255 K/mm3 (150-450); RBC Distribution Width CV 14.9 % (11.6-14.6); RBC Distribution Width SD 48.9 fl (35.1-43.9); Red Blood Count 4.51 M/mm3 (4.2-5.4); White Blood Count 10.5 K/mm3 (4.4-11.0)
== END | disposition home or self-care (01) ==
LOC: LAB 08:13
PROVIDERS: PCP Internal Medicine; Visit Provider Nurse Practitioner Gerontology
DX: D72.829 Elevated white blood cell count, unspecified (principal)
CPT/HCPCS: 36415; 85025

== ENCOUNTER → 2022-06-01 | Outpatient (CLI) | payer MEDICARE, SELFPAY | END | disposition home or self-care (01) | LOC: LABSPEC 09:04 | PROVIDERS: PCP Internal Medicine; Referring Provider Nurse Practitioner Adult Health; Visit Provider Nurse Practitioner Adult Health | DX: R19.7 Diarrhea, unspecified (principal) | CPT/HCPCS: 87493 ==

== ENCOUNTER → 2022-06-02 | Outpatient (CLI) | payer MEDICARE, SELFPAY | END | disposition home or self-care (01) | LOC: PSN 09:08 | PROVIDERS: PCP Internal Medicine; Visit Provider Nurse Practitioner Gerontology | DX: R42 Dizziness and giddiness (principal) | CPT/HCPCS: 93225; 93226 ==

== ENCOUNTER → 2022-07-06 | Outpatient (CLI) | payer MEDICARE, SELFPAY ==
[2022-07-06 09:54] LABS: Absolute Lymphocyte Count 1.16 X10^3/uL (0.83-4.51); Absolute Neutrophil Count 10.1 X10^3/uL (2.0-7.7); Basophil# 0.06 X10^3/uL; Basophil% 0.5 % (0-1); Eosinophil# 0.48 X10^3/uL; Eosinophils% 3.8 % (0-5); Hematocrit 42.4 % (37-47); Hemoglobin 13.9 g/dL (12.0-15.0); Lymphocyte # 1.16 X10^3/ul (0.83-4.51); Lymphocyte % 9.2 % (19-41); Mean Corp Hgb Conc 32.8 g/dL (32-36); Mean Corpuscular Hgb 30.5 pg (27.0-32.0); Mean Platelet Vol. 10.7 fl (6.2-12.0); Monocyte% 6.3 % (0-10); NRBC Flagged by Analyzer 0 % (0-5); Neutrophil # 10.07 X10^3/uL (2.7-7.7); Neutrophil % 79.7 % (47-70); Platelet Count 278 K/mm3 (150-450); RBC Distribution Width CV 14.2 % (11.6-14.6); RBC Distribution Width SD 47.6 fl (35.1-43.9); Red Blood Count 4.56 M/mm3 (4.2-5.4); White Blood Count 12.6 K/mm3 (4.4-11.0)
[2022-07-06 10:55] LABS: Vitamin B12 445 pg/mL (211-911); Vitamin D,25 Hydroxy 34.9 ng/mL
[2022-07-06 11:15] LABS: ALB/GLOB Ratio 0.9 RATIO (0.9-2.4); AST(SGOT) 16 U/L (15-37); Alanine Aminotransfer ALT/SGPT 20 U/L (13-56); Albumin, Serum 3.4 g/dL (3.2-5.0); Alkaline Phosphatase 107 U/L (45-117); Anion Gap 11 (5-15); BUN 21 mg/dL (7-18); BUN/Creat Ratio 20.2 RATIO (10-20); Calcium,Total 8.8 mg/dL (8.5-10.1); Chloride 100 mmol/L (98-107); Cholesterol 110 mg/dL (200); Creatinine, Serum 1.04 mg/dL (0.55-1.02); EST Glomerular Filtration Rate 57 mL/min (>60); Est Glom Filt Rate - Afr Amer 68 mL/min (>60); Globulin 3.6 g/dL (2.2-4.2); Glucose 215 mg/dL (74-106); High Density Lipoprotein 52 mg/dL; Magnesium 1.9 mg/dL (1.6-2.6); Potassium 3.2 mmol/L (3.5-5.1); Sodium Level 140 mmol/L (136-145); Thyroid Stim Hormone (TSH) 7.78 uIU/mL (0.358-3.74); Triglycerides 186 mg/dL; Very Low Density Lipoprotein 37 mg/dL (5-40)
== END | disposition home or self-care (01) ==
LOC: LAB 08:12
PROVIDERS: PCP Internal Medicine; Referring Provider Internal Medicine; Visit Provider Internal Medicine
DX: Z13.220 Encounter for screening for lipoid disorders (principal); J44.9 Chronic obstructive pulmonary disease, unspecified; E21.5 Disorder of parathyroid gland, unspecified; E11.9 Type 2 diabetes mellitus without complications; R07.9 Chest pain, unspecified; R19.5 Other fecal abnormalities; M54.9 Dorsalgia, unspecified; G89.29 Other chronic pain; E03.9 Hypothyroidism, unspecified; K29.70 Gastritis, unspecified, without bleeding; R42 Dizziness and giddiness; I10 Essential (primary) hypertension; K21.9 Gastro-esophageal reflux disease without esophagitis; E07.9 Disorder of thyroid, unspecified; M19.90 Unspecified osteoarthritis, unspecified site; M81.0 Age-related osteoporosis without current pathological fracture; E66.9 Obesity, unspecified; R13.10 Dysphagia, unspecified
CPT/HCPCS: 36415; 80053; 80061; 82274; 82306; 82607; 83735; 84443; 85025

== ENCOUNTER → 2022-07-09 | Outpatient (CLI) | payer MEDICARE, SELFPAY | END | disposition home or self-care (01) | LOC: LAB 11:42 | PROVIDERS: PCP Internal Medicine | DX: R19.5 Other fecal abnormalities (principal); J44.9 Chronic obstructive pulmonary disease, unspecified; E21.5 Disorder of parathyroid gland, unspecified; E11.9 Type 2 diabetes mellitus without complications; M54.9 Dorsalgia, unspecified; G89.29 Other chronic pain; E03.9 Hypothyroidism, unspecified; K29.70 Gastritis, unspecified, without bleeding; R42 Dizziness and giddiness; I10 Essential (primary) hypertension; K21.9 Gastro-esophageal reflux disease without esophagitis; E07.9 Disorder of thyroid, unspecified; M19.90 Unspecified osteoarthritis, unspecified site; M81.0 Age-related osteoporosis without current pathological fracture; E66.9 Obesity, unspecified; R13.10 Dysphagia, unspecified | CPT/HCPCS: 82274 ==

== ENCOUNTER → 2022-07-12 | Outpatient (CLI) | payer MEDICARE, SELFPAY ==
--- NOTE | 2022-07-12 08:27 | US_ITS ---
STUDY: ABDOMINAL ULTRASOUND - RIGHT UPPER QUADRANT REASON FOR VISIT: Female, 67 years old Upper abdominal pain TECHNIQUE: Ultrasound evaluation of the right upper quadrant was performed with real-time and static davison-scale imaging. TECHNICAL QUALITY: Adequate. COMPARISON: None. FINDINGS: Liver: The liver measures 16.5 cm. There is increased echogenicity consistent with fatty infiltration. The bile ducts are within normal limits. There is hepatic color flow. The direction of portal flow is hepatopetal. There is no demonstrated mass lesion. Gallbladder: The patient is status post cholecystectomy. Common Bile Duct (C.B.D.): The common bile duct measures 5 mm. Pancreas: Normal size of the head, body and tail of the pancreas. There is normal echogenicity of the pancreas. There is no demonstrated pancreatic mass or cyst. Right Kidney: Normal size of the right kidney. The right kidney measures 11.4 cm x 5.5 cm x 5.2 cm. Normal renal cortex. The right cortex measures 2.1 cm. There is no demonstrated renal mass or cyst. There is no right hydronephrosis. US/Liver IMPRESSION: Fatty infiltration of the liver. Status post cholecystectomy. Electronically Signed: Derek Cornejo MD at 12:32 EST ,
== END | disposition home or self-care (01) ==
LOC: US 08:26
PROVIDERS: PCP Internal Medicine; Referring Provider Internal Medicine; Visit Provider Internal Medicine
DX: R10.10 Upper abdominal pain, unspecified (principal)
CPT/HCPCS: 76705

== ENCOUNTER → 2022-07-15 | Outpatient (CLI) | payer MEDICARE, SELFPAY ==
[2022-07-15 09:58] LABS: Absolute Lymphocyte Count 1.36 X10^3/uL (0.83-4.51); Absolute Neutrophil Count 7.1 X10^3/uL (2.0-7.7); Basophil# 0.05 X10^3/uL; Basophil% 0.5 % (0-1); Eosinophil# 0.64 X10^3/uL; Eosinophils% 6.5 % (0-5); Hemoglobin 13.4 g/dL (12.0-15.0); Lymphocyte # 1.36 X10^3/ul (0.83-4.51); Lymphocyte % 13.8 % (19-41); Mean Corp Hgb Conc 31.9 g/dL (32-36); Mean Corpuscular Hgb 29.6 pg (27.0-32.0); Mean Corpuscular Volume 92.9 fL (81-99); Mean Platelet Vol. 10.7 fl (6.2-12.0); Monocyte# 0.67 X10^3/uL; Monocyte% 6.8 % (0-10); NRBC Flagged by Analyzer 0 % (0-5); Neutrophil # 7.09 X10^3/uL (2.7-7.7); Neutrophil % 72.1 % (47-70); Platelet Count 263 K/mm3 (150-450); RBC Distribution Width CV 13.9 % (11.6-14.6); RBC Distribution Width SD 47.4 fl (35.1-43.9); Red Blood Count 4.52 M/mm3 (4.2-5.4); White Blood Count 9.8 K/mm3 (4.4-11.0)
[2022-07-15 10:17] LABS: ALB/GLOB Ratio 0.9 RATIO (0.9-2.4); AST(SGOT) 20 U/L (15-37); Alanine Aminotransfer ALT/SGPT 21 U/L (13-56); Alkaline Phosphatase 101 U/L (45-117); Anion Gap 9 (5-15); BUN 13 mg/dL (7-18); BUN/Creat Ratio 11.8 RATIO (10-20); Calcium,Total 8.6 mg/dL (8.5-10.1); Chloride 103 mmol/L (98-107); EST Glomerular Filtration Rate 53 mL/min (>60); Est Glom Filt Rate - Afr Amer 64 mL/min (>60); Globulin 3.5 g/dL (2.2-4.2); Glucose 240 mg/dL (74-106); Potassium 3.7 mmol/L (3.5-5.1); Protein, Total 6.5 g/dL (6.4-8.2); Sodium Level 139 mmol/L (136-145)
== END | disposition home or self-care (01) ==
LOC: LAB 09:12
PROVIDERS: PCP Internal Medicine; Referring Provider Internal Medicine Rheumatology; Visit Provider Internal Medicine Rheumatology
DX: M06.4 Inflammatory polyarthropathy (principal); Z79.899 Other long term (current) drug therapy; K90.0 Celiac disease
CPT/HCPCS: 36415; 80053; 85025

== ENCOUNTER → 2022-07-26 | Outpatient (CLI) | payer MEDICARE, SELFPAY ==
[2022-07-26 14:04] LABS: Lipase 101 U/L (73-393)
== END | disposition home or self-care (01) ==
LOC: LAB 13:17
PROVIDERS: PCP Internal Medicine; Referring Provider Nurse Practitioner Adult Health; Visit Provider Nurse Practitioner Adult Health
DX: R10.11 Right upper quadrant pain (principal); R19.7 Diarrhea, unspecified
CPT/HCPCS: 36415; 83690

== ENCOUNTER → 2022-07-28 | Outpatient (CLI) | payer MEDICARE, SELFPAY ==
[2022-07-28 09:23] LABS: Microalbumin,Random Urine 12.4 mg/L (NO RANGE EST.); Microalbumin:Creatinine Ratio 32.1 mg/g CRE (<30 mg/g CRE)
[2022-08-02 18:54] LABS: Pancreatic Elastase, Fecal 60 (>200)
== END | disposition home or self-care (01) ==
LOC: PSN 08:51
PROVIDERS: Nurse Practitioner Adult Health; PCP Internal Medicine; Referring Provider Nurse Practitioner Acute Care; Visit Provider Nurse Practitioner Acute Care
DX: E11.22 Type 2 diabetes mellitus with diabetic chronic kidney disease (principal); R50.9 Fever, unspecified; R10.11 Right upper quadrant pain; R19.7 Diarrhea, unspecified
CPT/HCPCS: 82043; 82570; 82653; 87632; C9803

== ENCOUNTER → 2022-08-10 | Outpatient (CLI) | payer MEDICARE, SELFPAY ==
--- NOTE | 2022-08-10 08:57 | RAD_ITS ---
STUDY: X-RAY CHEST REASON FOR EXAM: Female, 67 years old. Fever and cough TECHNIQUE: PA and lateral views of the chest. COMPARISON: None. FINDINGS: The lungs are clear and expanded. There is no demonstrated pleural abnormality. Normal size heart. Normal mediastinum and florencia. Normal visualized pulmonary arteries. Normal visualized aortic arch and descending thoracic aorta. There are diffuse degenerative changes of the visualized thoracic spine. Normal visualized ribs, clavicles, and shoulders. There is no demonstrated abnormality of the visualized soft tissue structures of the upper abdomen. RAD/Chest PA and Lateral IMPRESSION: No acute pulmonary process Electronically Signed: Edgar Marin MD at 9:27 EDT ,
[2022-08-10 10:10] LABS: Absolute Lymphocyte Count 1.32 X10^3/uL (0.83-4.51); Absolute Neutrophil Count 8.6 X10^3/uL (2.0-7.7); Basophil# 0.06 X10^3/uL; Basophil% 0.5 % (0-1); Eosinophil# 0.88 X10^3/uL; Eosinophils% 7.5 % (0-5); Hematocrit 41.7 % (37-47); Hemoglobin 13.2 g/dL (12.0-15.0); Lymphocyte # 1.32 X10^3/ul (0.83-4.51); Lymphocyte % 11.3 % (19-41); Mean Corp Hgb Conc 31.7 g/dL (32-36); Mean Corpuscular Hgb 29.5 pg (27.0-32.0); Mean Corpuscular Volume 93.3 fL (81-99); Mean Platelet Vol. 10.4 fl (6.2-12.0); Monocyte# 0.81 X10^3/uL; Monocyte% 6.9 % (0-10); NRBC Flagged by Analyzer 0 % (0-5); Neutrophil # 8.57 X10^3/uL (2.7-7.7); Neutrophil % 73.4 % (47-70); Platelet Count 271 K/mm3 (150-450); RBC Distribution Width CV 13.2 % (11.6-14.6); RBC Distribution Width SD 44.9 fl (35.1-43.9); Red Blood Count 4.47 M/mm3 (4.2-5.4); White Blood Count 11.7 K/mm3 (4.4-11.0)
[2022-08-10 10:34] LABS: BNP,B-Type NATRIURETIC PEPTIDE 30.8 pg/mL (0-100)
[2022-08-10 10:47] LABS: Anion Gap 7 (5-15); BUN 18 mg/dL (7-18); BUN/Creat Ratio 16.4 RATIO (10-20); Calcium,Total 9.1 mg/dL (8.5-10.1); Chloride 102 mmol/L (98-107); EST Glomerular Filtration Rate 53 mL/min (>60); Est Glom Filt Rate - Afr Amer 64 mL/min (>60); Glucose 257 mg/dL (74-106); Potassium 3.8 mmol/L (3.5-5.1); Sodium Level 139 mmol/L (136-145)
[2022-08-10 10:50] LABS: T4 Free Direct 0.84 ng/dL (0.76-1.46)
== END | disposition home or self-care (01) ==
LOC: RAD 08:56
PROVIDERS: PCP Internal Medicine; Referring Provider Nurse Practitioner Gerontology; Visit Provider Nurse Practitioner Gerontology
DX: R06.00 Dyspnea, unspecified (principal); I50.32 Chronic diastolic (congestive) heart failure; E03.9 Hypothyroidism, unspecified
CPT/HCPCS: 36415; 71046; 80048; 83880; 84439; 84443; 84481; 85025

== ENCOUNTER → 2022-08-13 | Outpatient (CLI) | payer MEDICARE, SELFPAY ==
[2022-08-13 09:54] LABS: Microalbumin,Random Urine < 5.0 mg/L (NO RANGE EST.)
[2022-08-13 09:57] LABS: Albumin, Serum 3.1 g/dL (3.2-5.0); BUN 13 mg/dL (7-18); BUN/Creat Ratio 12.9 RATIO (10-20); Calcium,Total 8.4 mg/dL (8.5-10.1); Chloride 102 mmol/L (98-107); Creatinine, Serum 1.01 mg/dL (0.55-1.02); EST Glomerular Filtration Rate 58 mL/min (>60); Est Glom Filt Rate - Afr Amer 71 mL/min (>60); Glucose 254 mg/dL (74-106); Phosphorus 2.2 mg/dL (2.5-4.9); Potassium 3.2 mmol/L (3.5-5.1); Sodium Level 140 mmol/L (136-145)
== END | disposition home or self-care (01) ==
LOC: LAB 08:13
PROVIDERS: Nurse Practitioner Acute Care; PCP Internal Medicine; Referring Provider Internal Medicine Nephrology; Visit Provider Internal Medicine Nephrology
DX: E11.22 Type 2 diabetes mellitus with diabetic chronic kidney disease (principal); N18.32 Chronic kidney disease, stage 3b; R50.9 Fever, unspecified
CPT/HCPCS: 36415; 80069; 82043; 82570; 86769

== ENCOUNTER → 2022-09-07 | Outpatient (CLI) | payer MEDICARE, SELFPAY ==
[2022-09-07 09:15] LABS: Anion Gap 5 (5-15); BUN 14 mg/dL (7-18); BUN/Creat Ratio 13.7 RATIO (10-20); Calcium,Total 8.6 mg/dL (8.5-10.1); Chloride 106 mmol/L (98-107); Creatinine, Serum 1.02 mg/dL (0.55-1.02); EST Glomerular Filtration Rate 58 mL/min (>60); Est Glom Filt Rate - Afr Amer 70 mL/min (>60); Glucose 189 mg/dL (74-106); Potassium 3.9 mmol/L (3.5-5.1); Sodium Level 138 mmol/L (136-145)
== END | disposition home or self-care (01) ==
LOC: LAB 08:13
PROVIDERS: PCP Internal Medicine; Referring Provider Internal Medicine Nephrology; Visit Provider Internal Medicine Nephrology
DX: E87.6 Hypokalemia (principal); N18.32 Chronic kidney disease, stage 3b
CPT/HCPCS: 36415; 80048

== ENCOUNTER → 2022-10-04 | Outpatient (CLI) | payer MEDICARE, SELFPAY ==
[2022-10-04 10:23] LABS: Free T3 1.6 pg/mL (2.18-3.98); Thyroid Stim Hormone (TSH) 5.73 uIU/mL (0.358-3.74)
== END | disposition home or self-care (01) ==
LOC: LAB 08:42
PROVIDERS: PCP Internal Medicine; Referring Provider Internal Medicine; Visit Provider Internal Medicine
DX: E03.9 Hypothyroidism, unspecified (principal)
CPT/HCPCS: 36415; 84439; 84443; 84481

== ENCOUNTER → 2022-10-26 | Outpatient (CLI) | payer MEDICARE, SELFPAY ==
[2022-10-26 09:58] LABS: Absolute Neutrophil Count 7.2 X10^3/uL (2.0-7.7); Basophil# 0.02 X10^3/uL; Basophil% 0.2 % (0-1); Eosinophil# 1.48 X10^3/uL; Eosinophils% 13.9 % (0-5); Hematocrit 40.8 % (37-47); Hemoglobin 13.1 g/dL (12.0-15.0); Lymphocyte % 12.2 % (19-41); Mean Corp Hgb Conc 32.1 g/dL (32-36); Mean Corpuscular Hgb 29.7 pg (27.0-32.0); Mean Corpuscular Volume 92.5 fL (81-99); Mean Platelet Vol. 10.3 fl (6.2-12.0); Monocyte# 0.64 X10^3/uL; NRBC Flagged by Analyzer 0 % (0-5); Neutrophil # 7.16 X10^3/uL (2.7-7.7); Neutrophil % 67.4 % (47-70); Platelet Count 233 K/mm3 (150-450); RBC Distribution Width CV 13.2 % (11.6-14.6); RBC Distribution Width SD 44.4 fl (35.1-43.9); Red Blood Count 4.41 M/mm3 (4.2-5.4); White Blood Count 10.6 K/mm3 (4.4-11.0)
[2022-10-26 10:36] LABS: ALB/GLOB Ratio 0.9 RATIO (0.9-2.4); AST(SGOT) 24 U/L (15-37); Alanine Aminotransfer ALT/SGPT 21 U/L (13-56); Albumin, Serum 3.1 g/dL (3.2-5.0); Alkaline Phosphatase 124 U/L (45-117); Anion Gap 7 (5-15); BUN 14 mg/dL (7-18); BUN/Creat Ratio 14.8 RATIO (10-20); Calcium,Total 8.2 mg/dL (8.5-10.1); Chloride 106 mmol/L (98-107); Creatinine, Serum 0.95 mg/dL (0.55-1.02); EST Glomerular Filtration Rate 63 mL/min (>60); Est Glom Filt Rate - Afr Amer 76 mL/min (>60); Globulin 3.5 g/dL (2.2-4.2); Glucose 195 mg/dL (74-106); Potassium 3.7 mmol/L (3.5-5.1); Protein, Total 6.6 g/dL (6.4-8.2); Sodium Level 140 mmol/L (136-145)
--- NOTE | 2022-10-27 07:27 | PFT ---
INTRODUCTION: The patient is a 67-year-old female who presents for pulmonary function studies secondary to a diagnosis of dysphagia. Respiratory therapy reported good patient effort. Bronchodilators were used during testing. INTERPRETATION: Forced expiration spirometry demonstrates no evidence of a large airways obstructive ventilatory defect. There was no significant response to aerosolized bronchodilators. Spirograms are of fair quality but terminate prior to 6 seconds, likely underestimating FVC. Body plethysmography was performed and revealed a decreased TLC to 5.09 L, 87% of predicted, indicative of a mild restrictive ventilatory impairment. Diffusing capacity by single breath CO is mildly reduced. IMPRESSION: Mild restrictive ventilatory impairment with symmetric reduction in diffusing capacity.
== END | disposition home or self-care (01) ==
LOC: PSN 08:42
PROVIDERS: Internal Medicine Rheumatology; PCP Internal Medicine; Referring Provider Internal Medicine Critical Care Medicine; Visit Provider Internal Medicine Critical Care Medicine
DX: M06.4 Inflammatory polyarthropathy (principal); Z79.899 Other long term (current) drug therapy; M79.7 Fibromyalgia; R13.12 Dysphagia, oropharyngeal phase
CPT/HCPCS: 36415; 80053; 85025; 94060; 94726; 94729

== ENCOUNTER → 2022-11-01 | Outpatient (CLI) | payer MEDICARE, SELFPAY ==
--- NOTE | 2022-11-01 11:15 | RAD_ITS ---
INDICATION: Fall at home EXAMINATION/TECHNIQUE: X-RAY - frontal view chest with frontal and oblique views of left ribs, 5 images total COMPARISON: Two-view chest x-ray from 08/10/2022 FINDINGS: LINES/DEVICES: None. LUNGS: No overt pulmonary edema or focal airspace consolidation. No sizable pleural effusion. No detectable pneumothorax. MEDIASTINUM AND CARDIOVASCULAR STRUCTURES: Heart size within normal limits for imaging technique. Atherosclerotic calcifications along aorta. BONES AND SOFT TISSUES: Skeletal degenerative changes. Nondisplaced fracture lateral left sixth rib. Adjacent small left axillary surgical clips. RAD/Ribs Uni Min 3V w/PA Chest IMPRESSION: Nondisplaced fracture left sixth rib Electronically Signed: Eric Chacko MD at 23:21 EDT ,
== END | disposition home or self-care (01) ==
LOC: RAD 11:11
PROVIDERS: PCP Internal Medicine; Referring Provider Internal Medicine; Visit Provider Internal Medicine
DX: R07.81 Pleurodynia (principal); W19.XXXA Unspecified fall, initial encounter; Y92.009 Unspecified place in unspecified non-institutional (private) residence as the place of occurrence of the external cause
CPT/HCPCS: 71101

== ENCOUNTER → 2022-11-26 | Outpatient (CLI) | payer MEDICARE, SELFPAY ==
[2022-11-26 12:16] VITALS: PULSE 102; PULSE 103; PULSE 105; PULSE 107; PULSE 95; PULSE 96; PULSE 99; O2SAT 95; O2SAT 97; O2SAT 98
[2022-11-26 13:09] LABS: Vitamin B12 1051 pg/mL (211-911)
[2022-11-26 13:25] LABS: Free T3 1.4 pg/mL (2.18-3.98); T4 Free Direct 0.91 ng/dL (0.76-1.46); Thyroid Stim Hormone (TSH) 4.35 uIU/mL (0.358-3.74)
--- NOTE | 2022-11-27 07:15 | PCM.PSN.6M ---
PSN 6 Minute Walk Test 6 Minute Walk Test 6 Minute Walk Test: 6 Minute Walk Test PSN:6-Minute Walk Test Start: 11/26/22 12:16 Freq: Status: Active Protocol: RESP.6MINW Document 11/26/22 12:16 BRYANANU (Rec: 11/26/22 12:18 MIRANDALEANAANU [id number]) 6 Minute Walk Test Date Performed 11/26/22 Time Performed 12:00 Height 5 ft 9 in Weight: 234 lb Weight in Pounds 234.[address]: Sherry José [employer] Assistive device used: None Pre-test Oxygen Delivery Method Room Air Pulse Ox (%) 97 Pulse Rate (60-100 beats/min) 96 Dyspnea Elias Scale (0-10) 0.5 Exertion Elias Scale (6-20) 6 1st minute Oxygen Delivery Method Room Air Pulse Ox (%) 98 Pulse Rate (60-100 beats/min) 99 2nd minute Oxygen Delivery Method Room Air Pulse Ox (%) 97 Pulse Rate (60-100 beats/min) 102 H 3rd minute Oxygen Delivery Method Room Air Pulse Ox (%) 95 Pulse Rate (60-100 beats/min) 105 H Number of Rests Taken 1 4th minute Oxygen Delivery Method Room Air Pulse Ox (%) 97 Pulse Rate (60-100 beats/min) 103 H 5th minute Oxygen Delivery Method Room Air Pulse Ox (%) 95 Pulse Rate (60-100 beats/min) 107 H 6th minute Oxygen Delivery Method Room Air Pulse Ox (%) 98 Pulse Rate (60-100 beats/min) 107 H Dyspnea Elias Scale (0-10) 4 Exertion Elias Scale (6-20) 14 Post-test Oxygen Delivery Method Room Air Pulse Ox (%) 98 Pulse Rate (60-100 beats/min) 95 Full Laps Walked 14 Partial Lap, Number of Tiles Walked 20 Total Distance Walked (ft) 846 Interpretation Interpretation: The patient ambulated 846 feet over the course of 6 minutes beginning on room air without assistive devices. Pretesting oxygen saturation was noted to be 97% on room air. With ambulation, the cristhian oxygen saturation was 95%. There was no significant exertional oxygen desaturation. Recommendations Recommendations: There is no indication for the use of supplemental oxygen at this time.
[2022-11-30 12:08] LABS: Free Kappa Light Chains 36.2 mg/L (3.3-19.4); Free Lambda Light Chains 24.3 mg/L (5.7-26.3); Vitamin B1, Thiamine 141.1 nmol/L (66.5-200.0)
== END | disposition home or self-care (01) ==
LOC: PSN 11:16
PROVIDERS: Psychiatry & Neurology Neurology; PCP Internal Medicine; Referring Provider Nurse Practitioner Acute Care; Visit Provider Nurse Practitioner Acute Care
DX: R06.00 Dyspnea, unspecified (principal); G62.9 Polyneuropathy, unspecified; E03.9 Hypothyroidism, unspecified
CPT/HCPCS: 36415; 82607; 82746; 83883; 84425; 84439; 84443; 84481; 94618

== ENCOUNTER → 2022-12-01 | Outpatient (CLI) | payer MEDICARE, SELFPAY ==
--- NOTE | 2022-12-01 09:04 | ART_ITS ---
Reason For Study: Bilateral Claudication Procedure A bilateral lower extremity continuous wave Doppler with analog waveform analysis and ankle brachial indexes. Left Segmental Pressures Left brachial= 136mmHg. Left posterior tibial artery = 177mmHg. Left dorsalis pedis artery = 155mmHg. Left digit = 91 mmHg. The left posterior tibial artery waveforms are triphasic. The left dorsalis pedis waveforms are triphasic. Right Segmental Pressures Right brachial= 149mmHg. Right posterior tibial artery = 167mmHg. Right dorsalis pedis artery = 158mmHg. Right digit = 109 mmHg. The right posterior tibial artery waveforms are triphasic. The right dorsalis pedis waveforms are triphasic. Indices The right ankle brachial index by the posterior tibial artery is 1.12. The right ankle brachial index by the dorsalis pedis is 1.06. The right digital-brachial index is 0.73. The left ankle brachial index by the posterior tibial artery is 1.19. The left ankle brachial index by the dorsalis pedis is 1.04. The left post exercise ankle brachial index is 0.61. VL/Ankle Brachial Index Interpretation Summary Normal right lower extremity posterior tibialis and dorsalis pedis ankle-brachi al indices of 1.12 and 1.06 respectively with a normal triphasic Doppler waveforms Borderline abnormal right digital brachial index of 0.73 Normal left lower extremity posterior tibialis and dorsalis pedis ankle-brachia l indices of 1.19 and 1.04 respectively with normal triphasic Doppler waveforms. Abnormal left digital brachial index of 0.61 Ordering Physician: Felice Machado Referring Physician: Heather Ziegler M.D. Performed By: Dajuan Ham RVT
== END | disposition home or self-care (01) ==
LOC: CVS 09:03
PROVIDERS: PCP Internal Medicine; Referring Provider Psychiatry & Neurology Neurology; Visit Provider Psychiatry & Neurology Neurology
DX: R09.89 Other specified symptoms and signs involving the circulatory and respiratory systems (principal); I73.9 Peripheral vascular disease, unspecified
CPT/HCPCS: 93922